=== PATIENT | female | born 1940 | race Caucasian/White ===

== ENCOUNTER 2017-01-23 10:06 | Inpatient (IN) | payer MEDICARE, OTHER ==
[~2017-01-23] VITALS: Ht 157.5 cm; Wt 73.5 kg
[~2017-01-23 10:06] MED LIST: AMLO2.5T PO; ATORVASTATIN CA80 MG PO; FLUO20CA8 PO; METO50TA10 PO; PIOG30TA3 PO
--- NOTE | 2017-01-23 11:28 | ED.ADGEN ---
Past Medical History Past Medical History: High Cholesterol, Hypertension Past Surgical History: , Other Additional Past Surgical Histo: kidney, L wrist Alcohol Use: None Drug Use: None Adult General Chief Complaint Chief Complaint: MECHANICAL FALL HPI HPI Patient is a 76 year old female who presents with right lower extremity pain. Patient states she was climbing over a fence that was what yesterday when she slipped and fell onto the right leg. She denies hitting her head or having loss of consciousness, no neck or back pain. Patient's been unable to ambulate on the leg since. She had to crawl to her home and she was helped up by family members. She denies taking any blood thinners. She is not taking anything for pain, the pain is in her right hip, distal right upper leg, diffuse right lateral lower leg and her ankle. Review of Systems Review of Systems Constitutional: Denies fever or chills. [] Eyes: Denies change in visual acuity. [] HENT: Denies nasal congestion or sore throat. [] Respiratory: Denies cough or shortness of breath. [] Cardiovascular: Denies active chest pain GI: Denies abdominal pain, nausea, vomiting, bloody stools or diarrhea. [] : Denies dysuria. [] Musculoskeletal: Denies back pain Integument: Denies rash. [] Neurologic: Denies headache, focal weakness or sensory changes. [] Current Medications Current Medications Current Medications Medications (Trade) Dose Ordered Sig/Kerrie Start Time Stop Time Status Last Admin Dose Admin Acetaminophen/ Hydrocodone Bitart (Lortab 5/325) 1 tab 1X ONCE 01/23/17 11:30 01/23/17 11:31 DC 01/23/17 11:30 1 TAB Ondansetron HCl (Zofran Odt) 4 mg 1X ONCE 01/23/17 11:30 01/23/17 11:31 DC 01/23/17 11:30 4 MG Allergies Allergies Allergies Coded Allergies Type Severity Reaction Last Updated Verified No Known Drug Allergies 09/23/14 No Physical Exam Physical Exam Constitutional: Well developed, well nourished, no acute distress, non-toxic appearance. [] HENT: Normocephalic, atraumatic, bilateral external ears normal, oropharynx moist, no oral exudates, nose normal. [] Eyes: PERRLA, EOMI, conjunctiva normal, no discharge. [] Neck: Normal range of motion, no tenderness, supple, no stridor. [] Cardiovascular:Heart rate regular with regular rhythm, no murmur [] Lungs & Thorax: Bilateral breath sounds clear to auscultation, no wheeze or crackles Abdomen: soft, no tenderness, no masses, no pulsatile masses. [] Skin: Warm, dry, no erythema, no rash. [] Back: No midline stepoffs or tenderness, no CVA tenderness. [] Extremities: RLE with ttp along distal/lateral upper leg with knee effusion, inability to flex at knee more than 20 degrees, in extended position, diffuse swelling/bruising of the lower leg along lateral aspect, normal distal sensory, dp pulse 2+, wiggles toes, ankle ttp without deformity, + ttp R ramus of pelvis , other extremities nontender and nondeformed. Neurologic: Alert and oriented X 3, normal motor function, normal sensory function, no focal deficits noted. [] Psychologic: Affect normal, judgement normal, mood normal. [] EKG EKG [] Radiology/Procedures Radiology/Procedures Pelvis, single view, 01/23/2017: History: Fall, pelvic pain No acute fracture or dislocation is identified. The hip joints are well-maintained with only mild marginal spurring. There is a small well-defined calcification in the soft tissues along superior aspect of the left greater trochanter. IMPRESSION: No acute pelvic abnormality is detected. Right femur, 2 views, 01/23/2017: No fracture is identified. The soft tissues are unremarkable. IMPRESSION: No acute right femoral abnormality is detected. Right knee with patella, 4 views, 01/23/2017: A large joint effusion is present. There are lucencies projected over the lateral aspect of the lateral tibial plateau raising the possibility of a nondisplaced fracture. No other fracture or dislocation is identified. IMPRESSION: 1. Large knee joint effusion. 2. Possible fracture of the lateral aspect of the proximal tibia. CT scanning may be useful for further evaluation, if clinically indicated. Right tibia and fibula, 2 views, 01/23/2017: No additional fracture is identified. Mild subcutaneous edema is noted. Right ankle, 3 views, 01/23/2017: No fracture or dislocation is identified. There is mild subcutaneous edema. IMPRESSION: No acute bony abnormality is detected. [] CT LE IMPRESSION: 1. Nondisplaced fracture of the proximal tibia laterally involving the articular surface of the lateral tibial plateau. 2. Moderate sized knee joint effusion. Course & Med Decision Making Course & Med Decision Making Pertinent Labs and Imaging studies reviewed. (See chart for details) pt reluctantly agreed to chris and sharon odt. XRays ordered. Pt explained some angina yesterday and pt was adamant she did not what to have this evaluated. I spoke with 's nurse practitioner, recommend knee immobilizer. I explained my concern for possible compartment syndrome developing. Patient preferred to go home but was unable to maneuver the crutches and which to do so. Therefore she did stay, we will continue to monitor her neurovascular status and have Dr. Khan see the patient. Accepted to Dr. Darling service DX: Tibial plateau fracture Chirag Disclaimer Dragelisa Disclaimer This electronic medical record was generated, in whole or in part, using a voice recognition dictation system. EDIS NANE MD Jan 23, 2017 11:28
[2017-01-23] MEDS ORDERED: HYDROcodone/APAP 5/325MG 1 TAB TABLET PO ONE (11:30)
[2017-01-23] MEDS ORDERED: ONDANSETRON ODT 4 MG TAB.RAPDIS. PO ONE (11:30)
--- NOTE | 2017-01-23 12:12 | RAD ---
Pelvis, single view, 01/23/2017: History: Fall, pelvic pain No acute fracture or dislocation is identified. The hip joints are well-maintained with only mild marginal spurring. There is a small well-defined calcification in the soft tissues along superior aspect of the left greater trochanter. IMPRESSION: No acute pelvic abnormality is detected. Right femur, 2 views, 01/23/2017: No fracture is identified. The soft tissues are unremarkable. IMPRESSION: No acute right femoral abnormality is detected. Right knee with patella, 4 views, 01/23/2017: A large joint effusion is present. There are lucencies projected over the lateral aspect of the lateral tibial plateau raising the possibility of a nondisplaced fracture. No other fracture or dislocation is identified. IMPRESSION: 1. Large knee joint effusion. 2. Possible fracture of the lateral aspect of the proximal tibia. CT scanning may be useful for further evaluation, if clinically indicated. Right tibia and fibula, 2 views, 01/23/2017: No additional fracture is identified. Mild subcutaneous edema is noted. Right ankle, 3 views, 01/23/2017: No fracture or dislocation is identified. There is mild subcutaneous edema. IMPRESSION: No acute bony abnormality is detected.
--- NOTE | 2017-01-23 14:12 | RAD ---
CT of the right knee without contrast, 01/23/2017: History: Fall, injury Noncontrast scans were obtained from the distal thigh down to the ankle joint as requested. There is a fracture of the proximal tibia laterally. The fracture is slightly comminuted. A fracture line involves the articular surface. There is slight cortical irregularity of the articular surface without significant depression or displacement. The distal femur, proximal fibula and patella are unremarkable. There is a moderate size knee joint effusion. There is mild subcutaneous edema anteriorly and laterally at the knee level. IMPRESSION: 1. Nondisplaced fracture of the proximal tibia laterally involving the articular surface of the lateral tibial plateau. 2. Moderate sized knee joint effusion. PQRS Compliance Statement: One or more of the following individualized dose reduction techniques were utilized for this examination: 1. Automated exposure control 2. Adjustment of the mA and/or kV according to patient size 3. Use of iterative reconstruction technique
[2017-01-23] MEDS ORDERED: HYDR-971 PO (14:46)
[2017-01-23] MEDS ORDERED: HYDROcodone/APAP 5/325MG 1 TAB TABLET PO PRN (15:30)
--- NOTE | 2017-01-23 15:59 | ACF ---
Admission Forms Criteria MUSCULOSKELETAL DISEASE GRG Clinical Indications for Admission to Inpatient Care (Place 'X' for any and all applicable criteria): Hospital admission is needed for appropriate care of the patient because of 1 or more of the following: [X]I. Fracture, dislocation, or other musculoskeletal injury requiring inpatient care(medical) as indicated by 1 or more of the following(4)(5)(6)(7) [ ]a) Vertebral fracture requiring observation for instability or neurologic compromise (8) [ ]b) Compartment syndrome (proven or cannot be ruled out during observation level of care) (9) [ ]c) Limb-threatening injury [ ]d) Major injury requiring inpatient stabilization such as traction initiation or external fixation before internal fixation or closure of complex or open fracture [X]e) Major injury requiring inpatient treatment after emergency or observation level care (as appropriate) [ ]f) Severe pain requiring acute inpatient management [ ]g) Injury with suspicion of abuse or neglect (eg., child, dependent elderly) [ ]II. Newly diagnosed or suspected bone, joint, or orthopedic device infection (e.g., osteomyelitis, septic arthritis) needing 1 or more of the following(1)(2)(3) [ ]a) IV antibiotics that cannot be initiated in other than inpatient setting (e.g., patient too unstable or home infusion not available) [ ]b) Device removal or replacement [ ]c) Bone or soft tissue debridement [ ]d) Joint drainage (drain placement or repetitive aspirations) [ ]III. Severe rheumatologic disease (e.g., systemic lupus erythematosus, rheumatoid arthritis) with complications or comorbidities (Also use Optimal Recovery Care Criteria or General Recovery Criteria as appropriate on the basis of predominant condition), including 1 or more of the following( 10)(11)(12)(13) [ ]a) Severe infection (e.g., CUSTOM APPLICATOR infection, sepsis) (14) [ ]b) Respiratory complications, including 1 or more of the following : [ ]i) Pleural effusion with respiratory compromise [ ]ii) Pulmonary hypertension with congestive failure [ ]iii) Respiratory failure [ ]iv) Pulmonary hemorrhage (15) [ ]c) Hematologic disease, including 1 or more of the following: [ ]i) Coagulopathy with bleeding [ ]ii) Thrombosis with hypercoagulable state [ ]iii) Thrombotic thrombocytopenic purpura [ ]d) Cerebritis with seizures, psychosis, or other severe abnormalities [ ]e) Vertebral destruction with monitoring needed for cervical myelopathy& possible respiratory compromise [ ]f) Exacerbation that requires inpatient treatment (e.g., intravenous immunosuppression) (16) [ ]g) Acute renal failure [ ]h) Cerebritis with seizures, psychosis, Altered mental status, or other neurologic abnormalities [ ]i) Pericardial effusion with tamponade [ ]j) Vertebral destruction, with monitoring needed for cervical myelopathy and possible respiratory compromise [ ]IV. Severe vasculitis with complications or comorbidities (Also use Optimal Recovery Care Criteria General Recovery Criteria as appropriate on the basis of predominant condition), including 1 or more of the following(11)(12)(17)(18)(19)(20) [ ]a) Exacerbation that requires inpatient treatment (e.g., intravenous immunosuppression) (19)(21) [ ]b) Pulmonary hemorrhage (15) [ ]c) CUSTOM APPLICATOR vasculitis with seizures, psychosis, Altered mental status that is severe or persistent, or other severe abnormalities (22) [ ]d) Cerebral infarction [ ]e) Gastrointestinal ischemia [ ]f) Gangrene or threatened amputation [ ]g) Renal failure (16) [ ]h) Other significant complications of vasculitis ( eg., tissue or organ ischemia, organ dysfunction ) [ ]V. Severe myopathy as indicated by 1 or more of the following (28)(29) [ ]a) New onset of airway compromise or inability to swallow [ ]b) Respiratory deterioration with observation needed for impending respiratory failure [ ]c) Exacerbation that requires inpatient treatment (e.g., intravenous immunosuppression) [ ]. Severe crystal gout (arthropathy) indicated by 1 or more of the following (23)(24) [ ]a) Severe pain requiring acute inpatient management [ ]b) Exacerbation that requires inpatient treatment (e.g., intravenous treatment) [ ]VII.Rhabdomyolysis and 1 or more of the following (25)(26)(27) [ ]a) Acute renal failure [ ]b) Need for intravenous hydration after emergency or observation level care (as appropriate) [ ]c) Inability to maintain oral hydration [ ]d) Change in mental status [ ]e) Electrolyte abnormality that remains after emergency or observation level care (as appropriate) [ ]VIII Post amputation complication, as indicated by ANY ONE of the following [ ]a) Infection [ ]b) Dehiscence [ ]c) Myodesis failure [ ]IX. Severe pain requiring acute inpatient management due to musculoskeletal condition [ ]X. Musculoskeletal Disease and ALL of the following: [ ]a) Symptom or finding for which emergency and observation care have failed or are not considered appropriate (Use General Criteria: Observation Care as appropriate) [ ]b) Presence of ANY ONE of the following [ ]i) A General Admission Criteria [ ]ii) A Pediatric General Admission Criteria The original [facility] content created by [email or web address] has been revised. The portions of the content which have been revised are identified through the use of italic text or in bold, and [email or web address] has neither reviewed nor approved the modified material. All other unmodified content is copyright [email or web address]. Please see references footnoted in the original [email or web address] edition 2016 Admission Criteria Met?: Yes KATH BAGLEY Jan 23, 2017 15:59
--- NOTE | 2017-01-23 16:35 | PDOC1 ---
History and Physical Current Problem List Problem List Problems Medical Problems: (1) Tibial plateau fracture, right Status: Acute Current Medications Current Medications Current Medications Medications (Trade) Dose Ordered Sig/Kerrie Start Time Stop Time Status Last Admin Dose Admin Acetaminophen/ Hydrocodone Bitart (Lortab 5/325) 1 tab PRN 1X PRN 01/23/17 15:30 Ondansetron HCl (Zofran Odt) 4 mg 1X ONCE 01/23/17 11:30 01/23/17 11:31 DC 01/23/17 11:30 4 MG Allergies Allergies Allergies Coded Allergies Type Severity Reaction Last Updated Verified No Known Drug Allergies 09/23/14 No ROS Review of System CONSTITUTIONAL: No fever or chills EYES: No recent changes SKIN: No rash or itching CARDIOVASCULAR: No chest pain, syncope, palpitations, or edema RESPIRATORY: No SOB or cough GASTROINTESTINAL: No nausea, vomiting or abdominal pain NEUROLOGICAL: No headaches or weakness ENDOCRINE: No cold or heat intolerance GENITOURINARY: No urgency or frequency of urination MUSCULOSKELETAL: joint pains LYMPHATICS: No enlarged lymph nodes PSYCHIATRIC: No anxiety or depression Physical Exam Physical Exam GEN.: No apparent distress. Alert and oriented. HEENT: Head is normocephalic, atraumatic NECK: Supple. no JVD LUNGS: Clear to auscultation. normal airflow HEART: RRR, S1, S2 present. Peripheral pulses intact ABDOMEN: Soft, nontender. Positive bowel sounds. EXTREMITIES: RLE cast present, pulses intact. sensations intact. NEUROLOGIC: Normal speech, normal tone PSYCHIATRIC: Normal affect, normal mood. SKIN: No ulcerations VTE Prophylaxis Ordered VTE Prophylaxis Devices: Yes VTE Pharmacological Prophylaxi: Yes OMAR MONTANO MD Jan 23, 2017 16:35
[2017-01-23] MEDS ORDERED: ACETAMINOPHEN 325 MG TABLET. PO PRN (16:45)
[2017-01-23] MEDS ORDERED: hydrALAZINE 20 MG/ML VIAL. IVP PRN (16:45)
[2017-01-23] MEDS ORDERED: ONDANSETRON PF 4 MG/2 ML VIAL. IV PRN (16:45)
[2017-01-23] MEDS ORDERED: ALBUTEROL SULFATE 2.5 MG/3 ML NEBU. NEB PRN (16:45)
[2017-01-23] MEDS: ONDANSETRON ODT 4 MG TAB.RAPDIS. PO PRN (18:20)
[2017-01-23] MEDS: HYDROcodone/APAP 7.5/325MG 1 TAB TABLET PO PRN (18:20)
[2017-01-23] MEDS: ENOXAPARIN 40 MG/0.4 ML SYRINGE. SQ SCH (18:21)
[2017-01-23 18:58] LABS: BASO % 0 % (0-3); EOS % 1 % (0-3); HEMATOCRIT 33.3 % (36.0-47.0); HEMOGLOBIN 10.9 g/dL (12.0-15.5); LYMPH # 2.1 x10^3/uL (1.0-4.8); LYMPH % 28 % (24-48); MEAN CORPUSCULAR HEMOGLOBIN 30 pg (25-35); MEAN CORPUSCULAR HGB CONC 33 g/dL (31-37); MEAN CORPUSCULAR VOLUME 91 fL (79-100); MONO % 9 % (0-9); NEUT % 62 % (31-73); PLATELET COUNT 176 x10^3/uL (140-400); RED BLOOD COUNT 3.67 x10^6/uL (3.50-5.40); RED CELL DISTRIBUTION WIDTH 14.5 % (11.5-14.5); WHITE BLOOD COUNT 7.4 x10^3/uL (4.0-11.0)
[2017-01-23 19:12] VITALS: BP 136/48
[2017-01-23 19:12] LABS: CALCIUM 8.9 mg/dL (8.5-10.1); CREATININE 1.3 mg/dL (0.6-1.0); POTASSIUM 3.8 mmol/L (3.5-5.1)
--- NOTE | 2017-01-23 22:29 | HP ---
ADMIT DATE: 01/23/2017 CHIEF COMPLAINT: Mechanical fall. HISTORY OF PRESENT ILLNESS: A 76-year-old female patient with a prior history of hypertension, diabetes, presented to the ER with complaints of right lower extremity extreme pain. Reportedly, the patient was trying to climb over the fence yesterday night and slipped and fell onto the right leg and this morning, she presented to the ER, noted to have a right tibial plateau fracture and the patient was admitted to the hospital for pain control and orthopedic evaluation and possible surgical plans. Currently, the patient's pain is 10/10, getting better with hydrocodone. Denies any fever or chills. Her right lower extremity is in a cast. PAST MEDICAL HISTORY: Hypertension, hyperlipidemia, diabetes mellitus and angina. PAST SURGICAL HISTORY: . PERSONAL HISTORY: No smoking, no alcohol, no drug abuse. FAMILY HISTORY: Unknown to the patient. REVIEW OF SYSTEMS: Please see my electronic H and P. PHYSICAL EXAMINATION: Please see my electronic H and P. HOME MEDICATIONS: Reviewed, reconciled. Please see MRAD. IMAGING STUDIES: Lower extremity CT showed a nondisplaced fracture of the proximal tibia laterally involving the articular surface of the lateral tibial ____. ____ Ankle x-ray: Large knee joint effusion, possible fracture of the lateral aspect of the proximal tibia. Pelvic x-ray: No pelvic abnormality seen. Femur x-ray: No acute right femoral abnormality seen. Right ankle 3 view: No acute abnormality seen. ASSESSMENT: 1. Right proximal nondisplaced tibial fracture, present on admission. 2. Diabetes mellitus. 3. Hypertension and angina. 4. Chronic obstructive pulmonary disease. PLAN: 1. She has been admitted for pain control with IV morphine and hydrocodone. 2. Mild IV hydration to prevent any compartment syndrome. 3. Orthopedics has been consulted for possible surgical plans. 4. CBC, BMP ordered and we will add CPK too. 5. DVT prophylaxis with Lovenox. 6. Home medication metoprolol and other home medications discussed with RN, we will continue. 7. Supportive care, physical therapy and occupational therapy. OMAR MONTANO MD DR: ROBERTO/leti JOB#: [id number] / [id number] MTDD
[2017-01-23 23:15] VITALS: BP 104/44
--- NOTE | 2017-01-24 00:56 | PDOC2 ---
CONSULT Date of Consult Date of Consult DATE: 01/23/17 Reason for Consult Reason for Consult: right proximal tibia fracture Referring Physician Referring Physician: ER physician Identification/Chief Complaint Chief Complaint Right knee pain Source Source: Chart review, Patient History of Present Illness Reason for Visit: Stacey is a 76 year old female patient admitted with a right proximal tibia fracture. She says last night she climbed over the fence in [place] while trying to let her guineafowl on the other side, when she slipped and fell on her right leg. She laid in the pasture for about an hour before she crawled inside to her . She denies hitting her head, lightheadedness, or loss of consciousness. She is in a right knee immobilizer and is pretty comfortable at rest. There is pain with any attempted movement of the right knee. Past Medical History Cardiovascular: HTN, Hyperlipidemia Endocrine: Diabetes Past Surgical History Past Surgical History kidney, wrist Past Surgical History: Family History Family History: No Significant Social History No ALCOHOL: none Drugs: None Lives: with Family Current Problem List Problem List Problems Medical Problems: (1) Tibial plateau fracture, right Status: Acute Current Medications Current Medications Current Medications Acetaminophen/ Hydrocodone Bitart (Lortab 5/325) 1 tab 1X ONCE PO Last administered on 01/23/17 11:30; Start 01/23/17 at 11:30; Stop 01/23/17 at 11:31 ; Status DC Ondansetron HCl (Zofran Odt) 4 mg 1X ONCE PO Last administered on 01/23/17 11 :30; Start 01/23/17 at 11:30; Stop 01/23/17 at 11:31; Status DC Acetaminophen/ Hydrocodone Bitart (Lortab 5/325) 1 tab PRN 1X PRN PO pain Last administered on 01/24/17 00:13; Start 01/23/17 at 15:30 Acetaminophen (Tylenol) 325 mg PRN Q6HRS PRN PO MILD PAIN / TEMP; Start at 16:45 Acetaminophen/ Hydrocodone Bitart (Lortab 5/325) 1 tab PRN Q6HRS PRN PO MODERATE TO SEVERE PAIN; Start 01/23/17 at 16:45 Hydralazine HCl (Apresoline) 10 mg PRN Q4HRS PRN IVP ELEVATED BP, SEE COMMENTS ; Start 01/23/17 at 16:45 Ondansetron HCl (Zofran) 4 mg PRN Q8HRS PRN IV NAUSEA/VOMITING; Start 01/23/17 at 16:45 Albuterol Sulfate (Ventolin Neb Soln) 2.5 mg PRN Q4HRS PRN NEB SHORTNESS OF BREATH; Start 01/23/17 at 16:45 Enoxaparin Sodium (Lovenox 40mg Syringe) 40 mg Q24H SQ Last administered on 18:21; Start 01/23/17 at 18:00 Acetaminophen/ Hydrocodone Bitart (Lortab 7.5/325) 1 tab PRN Q4HRS PRN PO PAIN Last administered on 01/23/17 18:20; Start 01/23/17 at 17:30 Ondansetron HCl (Zofran Odt) 4 mg PRN Q6HRS PRN PO NAUSEA/VOMITING Last administered on 01/23/17 18:20; Start 01/23/17 at 17:30 Active Scripts Active [place] 5-325 Tablet (Acetaminophen/Hydrocodone Bitart) 1 Each Tablet 1 Each PO PRN Q6HRS PRN as needed for pain Reported Pioglitazone Hcl 30 Mg Tablet 30 Mg PO DAILY Metoprolol Succinate 50 Mg Tab.er.24h 50 Mg PO Fluoxetine Hcl 20 Mg Capsule 1 Cap PO DAILY Atorvastatin Calcium 80 Mg Tablet 1 Tab PO DAILY Amlodipine Besylate 2.5 Mg Tablet 1 Tab PO DAILY Allergies Allergies: Coded Allergies: No Known Drug Allergies (Unverified , 09/23/14) Physical Exam General: Alert, Oriented X3, Cooperative, No acute distress HEENT: Atraumatic, EOMI Lungs: Normal air movement Heart: Regular rate Abdomen: Soft Extremities: No clubbing, No cyanosis, No edema, Normal pulses Skin: No rashes, No breakdown, No significant lesion Neuro: Normal speech, Sensation intact Psych/Mental Status: Mental status NL, Mood NL MUSCULOSKELETAL: Other (Right knee immobilizer intact. There is no lesion, abrasion, erythema, or ecchymosis of the right lower extremity. There is a small effusion. Tenderness to palpation generally over the knee, but specifically of the lateral tibia. Compartments are soft. Calf soft and nontender, with a negative Taylor's sign. Good dorsiflexion and plantarflexion. Peripheral pulses intact and light touch sensation normal.) Vitals VITALS Vital Signs Date Time Temp Pulse Resp B/P Pulse Ox O2 Delivery O2 Flow Rate FiO2 01/24/17 00:13 20 92 Room Air 01/23/17 23:15 98.8 68 104/44 98.8 Labs Labs Laboratory Tests Test 01/23/17 17:10 White Blood Count 7.4x10^3/uL (4.0-11.0) Red Blood Count 3.67x10^6/uL (3.50-5.40) Hemoglobin 10.9g/dL (12.0-15.5) Hematocrit 33.3% (36.0-47.0) Mean Corpuscular Volume 91fL (79-100) Mean Corpuscular Hemoglobin 30pg (25-35) Mean Corpuscular Hemoglobin Concent 33g/dL (31-37) Red Cell Distribution Width 14.5% (11.5-14.5) Platelet Count 176x10^3/uL (140-400) Neutrophils (%) (Auto) 62% (31-73) Lymphocytes (%) (Auto) 28% (24-48) Monocytes (%) (Auto) 9% (0-9) Eosinophils (%) (Auto) 1% (0-3) Basophils (%) (Auto) 0% (0-3) Neutrophils # (Auto) 4.6x10^3uL (1.8-7.7) Lymphocytes # (Auto) 2.1x10^3/uL (1.0-4.8) Monocytes # (Auto) 0.7x10^3/uL (0.0-1.1) Eosinophils # (Auto) 0.1x10^3/uL (0.0-0.7) Basophils # (Auto) 0.0x10^3/uL (0.0-0.2) Sodium Level 138mmol/L (136-145) Potassium Level 3.8mmol/L (3.5-5.1) Chloride Level 103mmol/L (98-107) Carbon Dioxide Level 27mmol/L (21-32) Anion Gap 8 (6-14) Blood Urea Nitrogen 20mg/dL (7-20) Creatinine 1.3mg/dL (0.6-1.0) Estimated GFR (Cockcroft-Gault) 40.0 Glucose Level 157mg/dL (70-99) Calcium Level 8.9mg/dL (8.5-10.1) Laboratory Tests Test 01/23/17 17:10 White Blood Count 7.4x10^3/uL (4.0-11.0) Red Blood Count 3.67x10^6/uL (3.50-5.40) Hemoglobin 10.9g/dL (12.0-15.5) Hematocrit 33.3% (36.0-47.0) Mean Corpuscular Volume 91fL (79-100) Mean Corpuscular Hemoglobin 30pg (25-35) Mean Corpuscular Hemoglobin Concent 33g/dL (31-37) Red Cell Distribution Width 14.5% (11.5-14.5) Platelet Count 176x10^3/uL (140-400) Neutrophils (%) (Auto) 62% (31-73) Lymphocytes (%) (Auto) 28% (24-48) Monocytes (%) (Auto) 9% (0-9) Eosinophils (%) (Auto) 1% (0-3) Basophils (%) (Auto) 0% (0-3) Neutrophils # (Auto) 4.6x10^3uL (1.8-7.7) Lymphocytes # (Auto) 2.1x10^3/uL (1.0-4.8) Monocytes # (Auto) 0.7x10^3/uL (0.0-1.1) Eosinophils # (Auto) 0.1x10^3/uL (0.0-0.7) Basophils # (Auto) 0.0x10^3/uL (0.0-0.2) Sodium Level 138mmol/L (136-145) Potassium Level 3.8mmol/L (3.5-5.1) Chloride Level 103mmol/L (98-107) Carbon Dioxide Level 27mmol/L (21-32) Anion Gap 8 (6-14) Blood Urea Nitrogen 20mg/dL (7-20) Creatinine 1.3mg/dL (0.6-1.0) Estimated GFR (Cockcroft-Gault) 40.0 Glucose Level 157mg/dL (70-99) Calcium Level 8.9mg/dL (8.5-10.1) Images Images X-rays of the right ankle, leg, knee, and pelvis were reviewed. CT of the right lower extremity shows a nondisplaced lateral proximal tibia fracture with involvement of the articular surface of the tibial plateau. Assessment/Plan Assessment/Plan Right proximal tibia fracture. Findings were reviewed with the patient and her daughter. I recommended nonoperative treatment with a knee immobilizer. Remain nonweightbearing on the right lower extremity. PT/OT to work with patient on using crutches. Office followup in two weeks. SARAH DE LOS SANTOS Jan 24, 2017 00:56
[2017-01-24 06:16] LABS: HEMATOCRIT 32.7 % (36.0-47.0); HEMOGLOBIN 10.8 g/dL (12.0-15.5); MEAN CORPUSCULAR HEMOGLOBIN 31 pg (25-35); MEAN CORPUSCULAR HGB CONC 33 g/dL (31-37); MEAN CORPUSCULAR VOLUME 92 fL (79-100); PLATELET COUNT 169 x10^3/uL (140-400); RED BLOOD COUNT 3.55 x10^6/uL (3.50-5.40); RED CELL DISTRIBUTION WIDTH 15.1 % (11.5-14.5); WHITE BLOOD COUNT 7.2 x10^3/uL (4.0-11.0)
[2017-01-24 06:17] LABS: BASO % 0 % (0-3); EOS % 1 % (0-3); LYMPH % 28 % (24-48); MONO % 10 % (0-9); NEUT % 62 % (31-73)
[2017-01-24 06:56] LABS: CALCIUM 8.8 mg/dL (8.5-10.1); CREATININE 1.3 mg/dL (0.6-1.0); POTASSIUM 3.8 mmol/L (3.5-5.1)
[2017-01-24 07:00] VITALS: BP 132/53
[2017-01-24] MEDS: ONDANSETRON ODT 4 MG TAB.RAPDIS. PO PRN (08:24)
[2017-01-24] MEDS: HYDROcodone/APAP 5/325MG 1 TAB TABLET PO PRN ×3 (08:25→22:35)
[2017-01-24] MEDS ORDERED: AMLO5TAB2 (08:27)
[2017-01-24] MEDS ORDERED: ALPR0.254 (08:29)
[2017-01-24 11:00] VITALS: BP 119/43
--- NOTE | 2017-01-24 12:50 | EKG ---
[facility] [address] [place] [address] Test Date: 2017-01-23 Test Time: 11:00:13 Pat Name: DAYANA CYR Department: Room: 432 1 Gender: F [employer] Leader: : 1940 Requested By: OMAR MONTANO Order Number: [id number] Reading MD: Jose Alejandro Leija Measurements Intervals [place] Rate: 62 P: 54 AR: 142 QRS: 9 QRSD: 82 T: 15 QT: 396 QTc: 404 Interpretive Statements SINUS RHYTHM Electronically Signed On 01-26-2017 9:38:27 CDT by Jose Alejandro Leija
--- NOTE | 2017-01-24 13:44 | PDOC ---
Provider Note Provider Note The patient was seen by me today. She was very pleasant. She told a story of climbing over the fence to get one of her 's 9 guinea hens when she slipped and fell because the fence was wet. She has trace knee effusion, but is comfortable in the knee immobilizer. No evidence of compartment syndrome. Neurovascularly intact at the foot. I reviewed Ashley Lacy PA-C note, and concur. I reviewed the CT scan, the x-rays, and the reports. The minimally displaced, nondepressed and nonsurgical lateral tibial plateau fracture is seen on series [address] scan. No surgery planned. I recommended office follow-up and continued splinting with nonweightbearing for 3 weeks followed by hinged knee brace and progressive weightbearing at that point. After I saw the patient, I was notified by the nurse that the patient's family has requested to be seen by a different physician. SUZANNE ALEXANDER MD Jan 24, 2017 13:44
[2017-01-24 15:00] VITALS: BP 115/42
[2017-01-24] MEDS ORDERED: ALPRAZolam 0.25 MG TABLET PO PRN (16:00)
[2017-01-24] MEDS: amLODIPine BESYLATE 5 MG TABLET PO SCH (16:00)
[2017-01-24] MEDS: METOPROLOL SUCC 24HR ER 50 MG TAB.ER.24H. PO SCH (16:00)
[2017-01-24] MEDS ORDERED: HYDROcodone/APAP 5/325MG 1 TAB TABLET PO PRN (16:00)
[2017-01-24] MEDS: PIOGLITAZONE 15 MG TABLET. PO SCH (16:31)
[2017-01-24] MEDS: FLUoxetine HCL 20 MG CAPSULE PO SCH (16:32)
--- NOTE | 2017-01-24 16:34 | PDOC ---
PROGRESS NOTES Chief Complaint Chief Complaint cc: Right lower extremity pain -DM -angina -hypertension -hyperlipidemia -COPD -kidney cancer -left nephrectomy -depression -anxiety -smoking - section History of Present Illness History of Present Illness Ms. Foster was sitting upright and conversing with us without difficulty. We discussed the pain she is going through with her tibial fracture. She had a knee brace on when we visited with her. She had just finished working on moving around in her room, and she described having difficulty with the therapy. In particular, she was concerned about the stability of crutches and was much more confident in her ability to complete rehab with a walker instead. She is still having symptoms of pain, which are typically controlled by pain medication. However, she only takes that once per day, and by the time the afternoon approaches she has noticed she becomes substantially worse. Vitals Vitals Vital Signs Date Time Temp Pulse Resp B/P Pulse Ox O2 Delivery O2 Flow Rate FiO2 01/24/17 11:00 101.5 56 18 119/43 90 Room Air 101.5 Physical Exam General: Alert, Cooperative Heart: Regular rate, Normal S1, Normal S2 Lungs: Clear, Other (She did not have any chest retractions with accessory muscle use or other signs of acute distress.) Abdomen: Soft, Other (Mild distension present) Extremities: No clubbing, No cyanosis Skin: No rashes, No breakdown Labs LABS Laboratory Tests Test 01/23/17 17:10 01/24/17 05:00 White Blood Count 7.4x10^3/uL (4.0-11.0) 7.2x10^3/uL (4.0-11.0) Red Blood Count 3.67x10^6/uL (3.50-5.40) 3.55x10^6/uL (3.50-5.40) Hemoglobin 10.9g/dL (12.0-15.5) 10.8g/dL (12.0-15.5) Hematocrit 33.3% (36.0-47.0) 32.7% (36.0-47.0) Mean Corpuscular Volume 91fL (79-100) 92fL (79-100) Mean Corpuscular Hemoglobin 30pg (25-35) 31pg (25-35) Mean Corpuscular Hemoglobin Concent 33g/dL (31-37) 33g/dL (31-37) Red Cell Distribution Width 14.5% (11.5-14.5) 15.1% (11.5-14.5) Platelet Count 176x10^3/uL (140-400) 169x10^3/uL (140-400) Neutrophils (%) (Auto) 62% (31-73) 62% (31-73) Lymphocytes (%) (Auto) 28% (24-48) 28% (24-48) Monocytes (%) (Auto) 9% (0-9) 10% (0-9) Eosinophils (%) (Auto) 1% (0-3) 1% (0-3) Basophils (%) (Auto) 0% (0-3) 0% (0-3) Neutrophils # (Auto) 4.6x10^3uL (1.8-7.7) 4.4x10^3uL (1.8-7.7) Lymphocytes # (Auto) 2.1x10^3/uL (1.0-4.8) 2.0x10^3/uL (1.0-4.8) Monocytes # (Auto) 0.7x10^3/uL (0.0-1.1) 0.7x10^3/uL (0.0-1.1) Eosinophils # (Auto) 0.1x10^3/uL (0.0-0.7) 0.1x10^3/uL (0.0-0.7) Basophils # (Auto) 0.0x10^3/uL (0.0-0.2) 0.0x10^3/uL (0.0-0.2) Sodium Level 138mmol/L (136-145) 138mmol/L (136-145) Potassium Level 3.8mmol/L (3.5-5.1) 3.8mmol/L (3.5-5.1) Chloride Level 103mmol/L (98-107) 102mmol/L (98-107) Carbon Dioxide Level 27mmol/L (21-32) 25mmol/L (21-32) Anion Gap 8 (6-14) 11 (6-14) Blood Urea Nitrogen 20mg/dL (7-20) 19mg/dL (7-20) Creatinine 1.3mg/dL (0.6-1.0) 1.3mg/dL (0.6-1.0) Estimated GFR (Cockcroft-Gault) 40.0 40.0 Glucose Level 157mg/dL (70-99) 122mg/dL (70-99) Calcium Level 8.9mg/dL (8.5-10.1) 8.8mg/dL (8.5-10.1) Review of Systems Review of Systems Ms. Foster has not had any nausea or vomiting. She has not experienced lightheadedness or dizziness. Assessment and Plan Assessmemt and Plan Problems Medical Problems: (1) Tibial plateau fracture, right Status: Acute Assessment: Ms. Foster is a 76 year old woman who presented with right lower extremity pain. -DM -angina -hypertension -hyperlipidemia -COPD -kidney cancer -left nephrectomy -depression -anxiety -smoking - section Plan: 1. Continue rehab - PT/OT 2. SNU evaluation for Thursday 3. Consulting Dr. Johnson 4. Continue home medications 5. Continue DVT prophylaxis enoxaparin 6. Continue nausea and pain management with ondansetron and Lortab 7. Appreciate subspecialist consultation Problems: Comment Review of Relevant I have reviewed the following items yazmin (where applicable) has been applied. Labs Laboratory Tests Test 01/23/17 17:10 01/24/17 05:00 White Blood Count 7.4x10^3/uL (4.0-11.0) 7.2x10^3/uL (4.0-11.0) Red Blood Count 3.67x10^6/uL (3.50-5.40) 3.55x10^6/uL (3.50-5.40) Hemoglobin 10.9g/dL (12.0-15.5) 10.8g/dL (12.0-15.5) Hematocrit 33.3% (36.0-47.0) 32.7% (36.0-47.0) Mean Corpuscular Volume 91fL (79-100) 92fL (79-100) Mean Corpuscular Hemoglobin 30pg (25-35) 31pg (25-35) Mean Corpuscular Hemoglobin Concent 33g/dL (31-37) 33g/dL (31-37) Red Cell Distribution Width 14.5% (11.5-14.5) 15.1% (11.5-14.5) Platelet Count 176x10^3/uL (140-400) 169x10^3/uL (140-400) Neutrophils (%) (Auto) 62% (31-73) 62% (31-73) Lymphocytes (%) (Auto) 28% (24-48) 28% (24-48) Monocytes (%) (Auto) 9% (0-9) 10% (0-9) Eosinophils (%) (Auto) 1% (0-3) 1% (0-3) Basophils (%) (Auto) 0% (0-3) 0% (0-3) Neutrophils # (Auto) 4.6x10^3uL (1.8-7.7) 4.4x10^3uL (1.8-7.7) Lymphocytes # (Auto) 2.1x10^3/uL (1.0-4.8) 2.0x10^3/uL (1.0-4.8) Monocytes # (Auto) 0.7x10^3/uL (0.0-1.1) 0.7x10^3/uL (0.0-1.1) Eosinophils # (Auto) 0.1x10^3/uL (0.0-0.7) 0.1x10^3/uL (0.0-0.7) Basophils # (Auto) 0.0x10^3/uL (0.0-0.2) 0.0x10^3/uL (0.0-0.2) Sodium Level 138mmol/L (136-145) 138mmol/L (136-145) Potassium Level 3.8mmol/L (3.5-5.1) 3.8mmol/L (3.5-5.1) Chloride Level 103mmol/L (98-107) 102mmol/L (98-107) Carbon Dioxide Level 27mmol/L (21-32) 25mmol/L (21-32) Anion Gap 8 (6-14) 11 (6-14) Blood Urea Nitrogen 20mg/dL (7-20) 19mg/dL (7-20) Creatinine 1.3mg/dL (0.6-1.0) 1.3mg/dL (0.6-1.0) Estimated GFR (Cockcroft-Gault) 40.0 40.0 Glucose Level 157mg/dL (70-99) 122mg/dL (70-99) Calcium Level 8.9mg/dL (8.5-10.1) 8.8mg/dL (8.5-10.1) Laboratory Tests Test 01/23/17 17:10 01/24/17 05:00 White Blood Count 7.4x10^3/uL (4.0-11.0) 7.2x10^3/uL (4.0-11.0) Red Blood Count 3.67x10^6/uL (3.50-5.40) 3.55x10^6/uL (3.50-5.40) Hemoglobin 10.9g/dL (12.0-15.5) 10.8g/dL (12.0-15.5) Hematocrit 33.3% (36.0-47.0) 32.7% (36.0-47.0) Mean Corpuscular Volume 91fL (79-100) 92fL (79-100) Mean Corpuscular Hemoglobin 30pg (25-35) 31pg (25-35) Mean Corpuscular Hemoglobin Concent 33g/dL (31-37) 33g/dL (31-37) Red Cell Distribution Width 14.5% (11.5-14.5) 15.1% (11.5-14.5) Platelet Count 176x10^3/uL (140-400) 169x10^3/uL (140-400) Neutrophils (%) (Auto) 62% (31-73) 62% (31-73) Lymphocytes (%) (Auto) 28% (24-48) 28% (24-48) Monocytes (%) (Auto) 9% (0-9) 10% (0-9) Eosinophils (%) (Auto) 1% (0-3) 1% (0-3) Basophils (%) (Auto) 0% (0-3) 0% (0-3) Neutrophils # (Auto) 4.6x10^3uL (1.8-7.7) 4.4x10^3uL (1.8-7.7) Lymphocytes # (Auto) 2.1x10^3/uL (1.0-4.8) 2.0x10^3/uL (1.0-4.8) Monocytes # (Auto) 0.7x10^3/uL (0.0-1.1) 0.7x10^3/uL (0.0-1.1) Eosinophils # (Auto) 0.1x10^3/uL (0.0-0.7) 0.1x10^3/uL (0.0-0.7) Basophils # (Auto) 0.0x10^3/uL (0.0-0.2) 0.0x10^3/uL (0.0-0.2) Sodium Level 138mmol/L (136-145) 138mmol/L (136-145) Potassium Level 3.8mmol/L (3.5-5.1) 3.8mmol/L (3.5-5.1) Chloride Level 103mmol/L (98-107) 102mmol/L (98-107) Carbon Dioxide Level 27mmol/L (21-32) 25mmol/L (21-32) Anion Gap 8 (6-14) 11 (6-14) Blood Urea Nitrogen 20mg/dL (7-20) 19mg/dL (7-20) Creatinine 1.3mg/dL (0.6-1.0) 1.3mg/dL (0.6-1.0) Estimated GFR (Cockcroft-Gault) 40.0 40.0 Glucose Level 157mg/dL (70-99) 122mg/dL (70-99) Calcium Level 8.9mg/dL (8.5-10.1) 8.8mg/dL (8.5-10.1) Medications Current Medications Acetaminophen/ Hydrocodone Bitart (Lortab 5/325) 1 tab 1X ONCE PO Last administered on 01/23/17t 11:30; Start 01/23/17 at 11:30; Stop 01/23/17 at 11:31 ; Status DC Ondansetron HCl (Zofran Odt) 4 mg 1X ONCE PO Last administered on 01/23/17 11 :30; Start 01/23/17 at 11:30; Stop 01/23/17 at 11:31; Status DC Acetaminophen/ Hydrocodone Bitart (Lortab 5/325) 1 tab PRN 1X PRN PO pain Last administered on 01/24/17 00:13; Start 01/23/17 at 15:30; Stop 01/24/17 at 12:51 ; Status DC Acetaminophen (Tylenol) 325 mg PRN Q6HRS PRN PO MILD PAIN / TEMP; Start at 16:45 Acetaminophen/ Hydrocodone Bitart (Lortab 5/325) 1 tab PRN Q6HRS PRN PO MODERATE PAIN Last administered on 01/24/17 08:25; Start 01/23/17 at 16:45 Hydralazine HCl (Apresoline) 10 mg PRN Q4HRS PRN IVP ELEVATED BP, SEE COMMENTS ; Start 01/23/17 at 16:45 Ondansetron HCl (Zofran) 4 mg PRN Q8HRS PRN IV NAUSEA/VOMITING; Start 01/23/17 at 16:45 Albuterol Sulfate (Ventolin Neb Soln) 2.5 mg PRN Q4HRS PRN NEB SHORTNESS OF BREATH; Start 01/23/17 at 16:45 Enoxaparin Sodium (Lovenox 40mg Syringe) 40 mg Q24H SQ Last administered on 18:21; Start 01/23/17 at 18:00 Acetaminophen/ Hydrocodone Bitart (Lortab 7.5/325) 1 tab PRN Q4HRS PRN PO SEVERE PAIN Last administered on 01/23/17 18:20; Start 01/23/17 at 17:30 Ondansetron HCl (Zofran Odt) 4 mg PRN Q6HRS PRN PO NAUSEA/VOMITING Last administered on 01/24/17 08:24; Start 01/23/17 at 17:30 Aspirin (Ecotrin) 325 mg DAILY PO ; Start 01/25/17 at 09:00; Stop 02/22/17 at 08 :59 Alprazolam (Xanax) 0.25 mg PRN BID PRN PO ANXIETY / AGITATION; Start 01/24/17 at 16:00 Amlodipine Besylate (Norvasc) 5 mg DAILY08 PO ; Start 01/24/17 at 16:00 Fluoxetine HCl (Prozac) 20 mg DAILY PO ; Start 01/24/17 at 16:00 Acetaminophen/ Hydrocodone Bitart (Lortab 5/325) 1 tab PRN Q6HRS PRN PO PAIN; Start 01/24/17 at 16:00 Metoprolol Succinate (Toprol Xl) 50 mg DAILY08 PO ; Start 01/24/17 at 16:00 Atorvastatin Calcium (Lipitor) 80 mg QHS PO ; Start 01/24/17 at 21:00 Pioglitazone HCl (Actos) 30 mg DAILY PO ; Start 01/24/17 at 16:00 Active Scripts Active [place] 5-325 Tablet (Acetaminophen/Hydrocodone Bitart) 1 Each Tablet 1 Each PO PRN Q6HRS PRN as needed for pain Reported Alprazolam 0.25 Mg Tablet 0.25 Amlodipine Besylate 5 Mg Tablet 5 Pioglitazone Hcl 30 Mg Tablet 30 Mg PO DAILY Metoprolol Succinate 50 Mg Tab.er.24h 50 Mg PO Fluoxetine Hcl 20 Mg Capsule 1 Cap PO DAILY Atorvastatin Calcium 80 Mg Tablet 1 Tab PO DAILY Vitals/I & O Vital Sign - Last 24 Hours 01/23/17 01/23/17 01/23/17 01/23/17 19:12 19:20 20:00 23:15 Temp 98.8 98.8 98.8 98.8 Pulse 61 68 Resp 18 20 18 B/P 136/48 104/44 Pulse Ox 92 92 91 O2 Delivery Room Air Room Air Room Air Room Air 01/24/17 01/24/17 01/24/17 01/24/17 00:13 01:13 07:00 08:00 Temp 97.9 97.9 Pulse 69 Resp 20 20 18 B/P 132/53 Pulse Ox 92 93 O2 Delivery Room Air Room Air Room Air Room Air 01/24/17 11:00 Temp 101.5 101.5 Pulse 56 Resp 18 B/P 119/43 Pulse Ox 90 O2 Delivery Room Air Intake and Output 01/23/17 01/23/17 01/24/17 15:00 23:00 07:00 Intake Total 180 ml 300 ml Balance 180 ml 300 ml TARA PARADAL K III DO Jan 24, 2017 16:33
[2017-01-24] MEDS: ENOXAPARIN 40 MG/0.4 ML SYRINGE. SQ SCH (18:30)
[2017-01-24 19:50] VITALS: BP 108/51
[2017-01-24] MEDS: ATORVASTATIN CALCIUM 40 MG TABLET. PO SCH (20:54)
[2017-01-24 23:28] VITALS: BP 131/45
[2017-01-25] MEDS: HYDROcodone/APAP 5/325MG 1 TAB TABLET PO PRN ×2 (04:57→10:48)
[2017-01-25 05:28] LABS: BASO % 1 % (0-3); EOS % 5 % (0-3); HEMATOCRIT 30.4 % (36.0-47.0); HEMOGLOBIN 10.5 g/dL (12.0-15.5); LYMPH # 2.4 x10^3/uL (1.0-4.8); LYMPH % 39 % (24-48); MEAN CORPUSCULAR HEMOGLOBIN 31 pg (25-35); MEAN CORPUSCULAR HGB CONC 35 g/dL (31-37); MEAN CORPUSCULAR VOLUME 89 fL (79-100); MONO % 12 % (0-9); NEUT % 43 % (31-73); PLATELET COUNT 169 x10^3/uL (140-400); RED BLOOD COUNT 3.41 x10^6/uL (3.50-5.40); RED CELL DISTRIBUTION WIDTH 14.6 % (11.5-14.5); WHITE BLOOD COUNT 6.2 x10^3/uL (4.0-11.0)
[2017-01-25 05:45] LABS: CALCIUM 8.1 mg/dL (8.5-10.1); CREATININE 1.4 mg/dL (0.6-1.0); GFR 36.8; POTASSIUM 4.1 mmol/L (3.5-5.1)
[2017-01-25 07:00] VITALS: BP 125/53
[2017-01-25] MEDS: PIOGLITAZONE 15 MG TABLET. PO SCH (08:37)
[2017-01-25] MEDS: ASPIRIN ENTERIC COATED 325 MG TABLET.DR. PO SCH ×2 (08:37→08:42)
[2017-01-25] MEDS: amLODIPine BESYLATE 5 MG TABLET PO SCH (08:38)
[2017-01-25] MEDS: FLUoxetine HCL 20 MG CAPSULE PO SCH (08:38)
[2017-01-25] MEDS: METOPROLOL SUCC 24HR ER 50 MG TAB.ER.24H. PO SCH (08:38)
[2017-01-25 10:58] VITALS: BP 102/40
[2017-01-25] MEDS: ONDANSETRON ODT 4 MG TAB.RAPDIS. PO PRN (11:41)
[2017-01-25 15:13] VITALS: BP 119/41
--- NOTE | 2017-01-25 16:41 | PDOC ---
PROGRESS NOTES Chief Complaint Chief Complaint cc: Right lower extremity pain -DM -angina -hypertension -hyperlipidemia -COPD -kidney cancer -left nephrectomy -depression -anxiety -smoking - section History of Present Illness History of Present Illness Patient seen and evaluated this AM. Patient sitting upright, pleasantly conversant. Knee brace in place with pain well managed with medications. Patient states she is working well with therapy and is eager to start rehabilitation. family at bedside; sought and answered questions. d/w nurse about plan of care. Vitals Vitals Vital Signs Date Time Temp Pulse Resp B/P Pulse Ox O2 Delivery O2 Flow Rate FiO2 01/25/17 15:13 97.9 63 16 119/41 92 Room Air 97.9 Physical Exam General: Alert, Cooperative, No acute distress Heart: Regular rate, Normal S1, Normal S2 Lungs: Clear, Other (negative chest retractions and/or other accessory muscle use. ) Abdomen: Normal bowel sounds, Soft, No tenderness, Other Extremities: No clubbing, No cyanosis, No edema, Other (knee brace to the RLE; LEs neurovacularly intact bilaterally. Distal pulses 2/4 bilaterally. ) Skin: No rashes, No breakdown Labs LABS Laboratory Tests Test 01/25/17 05:10 White Blood Count 6.2x10^3/uL (4.0-11.0) Red Blood Count 3.41x10^6/uL (3.50-5.40) Hemoglobin 10.5g/dL (12.0-15.5) Hematocrit 30.4% (36.0-47.0) Mean Corpuscular Volume 89fL (79-100) Mean Corpuscular Hemoglobin 31pg (25-35) Mean Corpuscular Hemoglobin Concent 35g/dL (31-37) Red Cell Distribution Width 14.6% (11.5-14.5) Platelet Count 169x10^3/uL (140-400) Neutrophils (%) (Auto) 43% (31-73) Lymphocytes (%) (Auto) 39% (24-48) Monocytes (%) (Auto) 12% (0-9) Eosinophils (%) (Auto) 5% (0-3) Basophils (%) (Auto) 1% (0-3) Neutrophils # (Auto) 2.7x10^3uL (1.8-7.7) Lymphocytes # (Auto) 2.4x10^3/uL (1.0-4.8) Monocytes # (Auto) 0.8x10^3/uL (0.0-1.1) Eosinophils # (Auto) 0.3x10^3/uL (0.0-0.7) Basophils # (Auto) 0.0x10^3/uL (0.0-0.2) Sodium Level 140mmol/L (136-145) Potassium Level 4.1mmol/L (3.5-5.1) Chloride Level 106mmol/L (98-107) Carbon Dioxide Level 28mmol/L (21-32) Anion Gap 6 (6-14) Blood Urea Nitrogen 18mg/dL (7-20) Creatinine 1.4mg/dL (0.6-1.0) Estimated GFR (Cockcroft-Gault) 36.8 Glucose Level 121mg/dL (70-99) Calcium Level 8.1mg/dL (8.5-10.1) Review of Systems Review of Systems (+) Right knee pain, increased with ambulation Denies chest pain, palpitations, sob, abdominal pain, n/v/d, numbness/tingling, or fever/chills. Assessment and Plan Assessmemt and Plan Problems Medical Problems: (1) Tibial plateau fracture, right Status: Acute Assessment: 1.) R tibial plateau fracture - currently in knee brace 2.) diabetes mellitus 3.) HTN 4.) dyslipidemia 5.) COPD 6.) prior kidney cancer s/p left nephrectomy 7.) current tobacco use. Plan: 1. PT/OT 2. probable discharge to [facility] tomorrow when okay with subspecialty 3. appreciate subspecialty input 4. Continue home medications as appropriate 5. Continue pain regimen and antiemetics 6. Monitor AM labs 7. tobacco cessation counseling. nicotine patch prn if needed. 8. DVT ppx: lovenox Problems: Comment Review of Relevant I have reviewed the following items yazmin (where applicable) has been applied. Labs Laboratory Tests Test 01/23/17 17:10 01/24/17 05:00 01/25/17 05:10 White Blood Count 7.4x10^3/uL (4.0-11.0) 7.2x10^3/uL (4.0-11.0) 6.2x10^3/uL (4.0-11.0) Red Blood Count 3.67x10^6/uL (3.50-5.40) 3.55x10^6/uL (3.50-5.40) 3.41x10^6/uL (3.50-5.40) Hemoglobin 10.9g/dL (12.0-15.5) 10.8g/dL (12.0-15.5) 10.5g/dL (12.0-15.5) Hematocrit 33.3% (36.0-47.0) 32.7% (36.0-47.0) 30.4% (36.0-47.0) Mean Corpuscular Volume 91fL (79-100) 92fL (79-100) 89fL (79-100) Mean Corpuscular Hemoglobin 30pg (25-35) 31pg (25-35) 31pg (25-35) Mean Corpuscular Hemoglobin Concent 33g/dL (31-37) 33g/dL (31-37) 35g/dL (31-37) Red Cell Distribution Width 14.5% (11.5-14.5) 15.1% (11.5-14.5) 14.6% (11.5-14.5) Platelet Count 176x10^3/uL (140-400) 169x10^3/uL (140-400) 169x10^3/uL (140-400) Neutrophils (%) (Auto) 62% (31-73) 62% (31-73) 43% (31-73) Lymphocytes (%) (Auto) 28% (24-48) 28% (24-48) 39% (24-48) Monocytes (%) (Auto) 9% (0-9) 10% (0-9) 12% (0-9) Eosinophils (%) (Auto) 1% (0-3) 1% (0-3) 5% (0-3) Basophils (%) (Auto) 0% (0-3) 0% (0-3) 1% (0-3) Neutrophils # (Auto) 4.6x10^3uL (1.8-7.7) 4.4x10^3uL (1.8-7.7) 2.7x10^3uL (1.8-7.7) Lymphocytes # (Auto) 2.1x10^3/uL (1.0-4.8) 2.0x10^3/uL (1.0-4.8) 2.4x10^3/uL (1.0-4.8) Monocytes # (Auto) 0.7x10^3/uL (0.0-1.1) 0.7x10^3/uL (0.0-1.1) 0.8x10^3/uL (0.0-1.1) Eosinophils # (Auto) 0.1x10^3/uL (0.0-0.7) 0.1x10^3/uL (0.0-0.7) 0.3x10^3/uL (0.0-0.7) Basophils # (Auto) 0.0x10^3/uL (0.0-0.2) 0.0x10^3/uL (0.0-0.2) 0.0x10^3/uL (0.0-0.2) Sodium Level 138mmol/L (136-145) 138mmol/L (136-145) 140mmol/L (136-145) Potassium Level 3.8mmol/L (3.5-5.1) 3.8mmol/L (3.5-5.1) 4.1mmol/L (3.5-5.1) Chloride Level 103mmol/L (98-107) 102mmol/L (98-107) 106mmol/L (98-107) Carbon Dioxide Level 27mmol/L (21-32) 25mmol/L (21-32) 28mmol/L (21-32) Anion Gap 8 (6-14) 11 (6-14) 6 (6-14) Blood Urea Nitrogen 20mg/dL (7-20) 19mg/dL (7-20) 18mg/dL (7-20) Creatinine 1.3mg/dL (0.6-1.0) 1.3mg/dL (0.6-1.0) 1.4mg/dL (0.6-1.0) Estimated GFR (Cockcroft-Gault) 40.0 40.0 36.8 Glucose Level 157mg/dL (70-99) 122mg/dL (70-99) 121mg/dL (70-99) Calcium Level 8.9mg/dL (8.5-10.1) 8.8mg/dL (8.5-10.1) 8.1mg/dL (8.5-10.1) Laboratory Tests Test 01/25/17 05:10 White Blood Count 6.2x10^3/uL (4.0-11.0) Red Blood Count 3.41x10^6/uL (3.50-5.40) Hemoglobin 10.5g/dL (12.0-15.5) Hematocrit 30.4% (36.0-47.0) Mean Corpuscular Volume 89fL (79-100) Mean Corpuscular Hemoglobin 31pg (25-35) Mean Corpuscular Hemoglobin Concent 35g/dL (31-37) Red Cell Distribution Width 14.6% (11.5-14.5) Platelet Count 169x10^3/uL (140-400) Neutrophils (%) (Auto) 43% (31-73) Lymphocytes (%) (Auto) 39% (24-48) Monocytes (%) (Auto) 12% (0-9) Eosinophils (%) (Auto) 5% (0-3) Basophils (%) (Auto) 1% (0-3) Neutrophils # (Auto) 2.7x10^3uL (1.8-7.7) Lymphocytes # (Auto) 2.4x10^3/uL (1.0-4.8) Monocytes # (Auto) 0.8x10^3/uL (0.0-1.1) Eosinophils # (Auto) 0.3x10^3/uL (0.0-0.7) Basophils # (Auto) 0.0x10^3/uL (0.0-0.2) Sodium Level 140mmol/L (136-145) Potassium Level 4.1mmol/L (3.5-5.1) Chloride Level 106mmol/L (98-107) Carbon Dioxide Level 28mmol/L (21-32) Anion Gap 6 (6-14) Blood Urea Nitrogen 18mg/dL (7-20) Creatinine 1.4mg/dL (0.6-1.0) Estimated GFR (Cockcroft-Gault) 36.8 Glucose Level 121mg/dL (70-99) Calcium Level 8.1mg/dL (8.5-10.1) Medications Current Medications Acetaminophen/ Hydrocodone Bitart (Lortab 5/325) 1 tab 1X ONCE PO Last administered on 01/23/17 11:30; Start 01/23/17 at 11:30; Stop 01/23/17 at 11:31 ; Status DC Ondansetron HCl (Zofran Odt) 4 mg 1X ONCE PO Last administered on 01/23/17 11 :30; Start 01/23/17 at 11:30; Stop 01/23/17 at 11:31; Status DC Acetaminophen/ Hydrocodone Bitart (Lortab 5/325) 1 tab PRN 1X PRN PO pain Last administered on 01/24/17 00:13; Start 01/23/17 at 15:30; Stop 01/24/17 at 12:51 ; Status DC Acetaminophen (Tylenol) 325 mg PRN Q6HRS PRN PO MILD PAIN / TEMP; Start at 16:45 Acetaminophen/ Hydrocodone Bitart (Lortab 5/325) 1 tab PRN Q6HRS PRN PO MODERATE PAIN Last administered on 01/25/17 10:48; Start 01/23/17 at 16:45 Hydralazine HCl (Apresoline) 10 mg PRN Q4HRS PRN IVP ELEVATED BP, SEE COMMENTS ; Start 01/23/17 at 16:45 Ondansetron HCl (Zofran) 4 mg PRN Q8HRS PRN IV NAUSEA/VOMITING; Start 01/23/17 at 16:45 Albuterol Sulfate (Ventolin Neb Soln) 2.5 mg PRN Q4HRS PRN NEB SHORTNESS OF BREATH; Start 01/23/17 at 16:45 Enoxaparin Sodium (Lovenox 40mg Syringe) 40 mg Q24H SQ Last administered on 18:30; Start 01/23/17 at 18:00 Acetaminophen/ Hydrocodone Bitart (Lortab 7.5/325) 1 tab PRN Q4HRS PRN PO SEVERE PAIN Last administered on 01/23/17 18:20; Start 01/23/17 at 17:30 Ondansetron HCl (Zofran Odt) 4 mg PRN Q6HRS PRN PO NAUSEA/VOMITING Last administered on 01/25/17 11:41; Start 01/23/17 at 17:30 Aspirin (Ecotrin) 325 mg DAILY PO ; Start 01/25/17 at 09:00; Stop 02/22/17 at 08 :59 Alprazolam (Xanax) 0.25 mg PRN BID PRN PO ANXIETY / AGITATION; Start 01/24/17 at 16:00 Amlodipine Besylate (Norvasc) 5 mg DAILY08 PO Last administered on 01/25/17 08 :38; Start 01/24/17 at 16:00 Fluoxetine HCl (Prozac) 20 mg DAILY PO Last administered on 01/25/17 08:38; Start 01/24/17 at 16:00 Acetaminophen/ Hydrocodone Bitart (Lortab 5/325) 1 tab PRN Q6HRS PRN PO PAIN; Start 01/24/17 at 16:00; Stop 01/25/17 at 13:59; Status DC Metoprolol Succinate (Toprol Xl) 50 mg DAILY08 PO Last administered on 08:38; Start 01/24/17 at 16:00 Atorvastatin Calcium (Lipitor) 80 mg QHS PO Last administered on 01/24/17 20: 54; Start 01/24/17 at 21:00 Pioglitazone HCl (Actos) 30 mg DAILY PO Last administered on 01/25/17 08:37; Start 01/24/17 at 16:00 Active Scripts Active [place] 5-325 Tablet (Acetaminophen/Hydrocodone Bitart) 1 Each Tablet 1 Each PO PRN Q6HRS PRN as needed for pain Reported Alprazolam 0.25 Mg Tablet 0.25 Amlodipine Besylate 5 Mg Tablet 5 Pioglitazone Hcl 30 Mg Tablet 30 Mg PO DAILY Metoprolol Succinate 50 Mg Tab.er.24h 50 Mg PO Fluoxetine Hcl 20 Mg Capsule 1 Cap PO DAILY Atorvastatin Calcium 80 Mg Tablet 1 Tab PO DAILY Vitals/I & O Vital Sign - Last 24 Hours 4/29/17 4/29/17 4/29/17 4/30/17 19:50 20:00 23:28 07:00 Temp 99.9 97.9 97.9 99.9 97.9 97.9 Pulse 70 69 74 Resp 18 18 16 B/P 108/51 131/45 125/53 Pulse Ox 92 92 91 O2 Delivery Room Air Room Air Room Air Room Air 01/25/17 01/25/17 01/25/17 01/25/17 08:38 08:38 10:48 10:58 Temp 98.1 98.1 Pulse 74 74 63 Resp 20 B/P 125/53 125/53 102/40 Pulse Ox 91 92 O2 Delivery Room Air Room Air 01/25/17 01/25/17 11:48 15:13 Temp 97.9 97.9 Pulse 63 Resp 16 B/P 119/41 Pulse Ox 92 92 O2 Delivery Room Air Room Air Intake and Output 01/24/17 01/24/17 01/25/17 15:00 23:00 07:00 Intake Total 500 ml Balance 500 ml CRISTINA PARADA III DO Jan 25, 2017 16:41
[2017-01-25] MEDS: HYDROcodone/APAP 7.5/325MG 1 TAB TABLET PO PRN ×2 (17:02→22:54)
[2017-01-25] MEDS: ENOXAPARIN 40 MG/0.4 ML SYRINGE. SQ SCH (17:03)
[2017-01-25 19:00] VITALS: BP 110/53
[2017-01-25] MEDS: ATORVASTATIN CALCIUM 40 MG TABLET. PO SCH (21:00)
--- NOTE | 2017-01-25 21:27 | CONS ---
DATE OF CONSULTATION: REFERRING PROVIDER: Dayami. CONSULTING PROVIDER: Tj Hannon MD REASON FOR CONSULTATION: Right tibial plateau fracture. CHIEF COMPLAINT: Right knee pain. HISTORY OF PRESENT ILLNESS: The patient is a very pleasant 76-year-old female who was tending guinea fowl when she lost her footing climbing over fence and suffered right tibial plateau fracture that was discovered after she presented to our Emergency Department. Radiographs and CT had been performed. She has been in the knee immobilizer and feels that this is helpful. Her knee does hurt. The pain does radiate down the leg. It is worse with any type of movement. No prior history of knee complaints. Her pain is not progressing. ALLERGIES: None. MEDICATIONS: Were reviewed. Please see MRAD. PAST MEDICAL HISTORY: Hypertension, hyperlipidemia and diabetes. PAST SURGICAL HISTORY: . SOCIAL HISTORY: Lives with her who has recovered from knee replacement, surgery, no alcohol or tobacco. FAMILY HISTORY: Unknown. REVIEW OF SYSTEMS: Twelve point review of systems negative except as per HPI. PHYSICAL EXAMINATION: GENERAL: The patient is alert and oriented, no acute distress. Mood and affect are appropriate. She is examined sitting in her hospital chair. HEENT: Head normocephalic, atraumatic. Extraocular muscles are intact. CARDIOVASCULAR: Regular rate and rhythm. No edema in her lower extremities. Dorsalis pedis 2+ and symmetric. LUNGS: Respirations are unlabored with symmetric chest rise. ABDOMEN: Soft, nondistended. EXTREMITIES: Examination of bilateral lower extremities reveals EHL and FHL 5/5. All compartments are soft. She does have tenderness to palpation around her right knee. She does have a large effusion present. No gross deformity. Normal sensation throughout bilateral lower extremities. No tenderness at her hip. No pain with passive range of motion in her right lower extremity. IMAGING: X-rays are reviewed. These were interpreted by myself. Knee reports were also reviewed. Femur x-ray, tib-fib x-rays, pelvis x-ray, knee x-ray, ankle x-ray and lower extremity CT were interpreted by myself. She has a non-displaced lateral tibial plateau fracture and good overall alignment. IMPRESSION: Closed right tibial plateau fracture. PLAN: I did discuss non-operative management and answered her questions. We will get a hinged knee brace once Wardrobe Consultant is able to come by. I would recommend hinged knee brace locked in extension for a couple of weeks followed by range of motion. She should follow up with myself in 2-3 weeks in clinic for repeat radiographs. TJ HANNON MD DR: GENEVIEVE/leti JOB#: [id number] / [id number] PAULINO
[2017-01-25 23:00] VITALS: BP 139/68
[2017-01-26] MEDS: HYDROcodone/APAP 7.5/325MG 1 TAB TABLET PO PRN ×2 (04:57→12:04)
[2017-01-26 05:10] LABS: BASO % 0 % (0-3); EOS % 6 % (0-3); HEMATOCRIT 32.7 % (36.0-47.0); HEMOGLOBIN 10.8 g/dL (12.0-15.5); LYMPH # 2.2 x10^3/uL (1.0-4.8); LYMPH % 40 % (24-48); MEAN CORPUSCULAR HEMOGLOBIN 30 pg (25-35); MEAN CORPUSCULAR HGB CONC 33 g/dL (31-37); MEAN CORPUSCULAR VOLUME 92 fL (79-100); MONO % 11 % (0-9); NEUT % 42 % (31-73); PLATELET COUNT 174 x10^3/uL (140-400); RED BLOOD COUNT 3.56 x10^6/uL (3.50-5.40); RED CELL DISTRIBUTION WIDTH 14.6 % (11.5-14.5); WHITE BLOOD COUNT 5.5 x10^3/uL (4.0-11.0)
[2017-01-26 05:48] LABS: CALCIUM 8.3 mg/dL (8.5-10.1); CREATININE 1.3 mg/dL (0.6-1.0); POTASSIUM 4.4 mmol/L (3.5-5.1)
[2017-01-26 07:10] VITALS: BP 105/48
[2017-01-26] MEDS: amLODIPine BESYLATE 5 MG TABLET PO SCH (08:00)
[2017-01-26] MEDS: METOPROLOL SUCC 24HR ER 50 MG TAB.ER.24H. PO SCH (08:00)
[2017-01-26] MEDS: PIOGLITAZONE 15 MG TABLET. PO SCH (08:42)
[2017-01-26] MEDS: ASPIRIN ENTERIC COATED 325 MG TABLET.DR. PO SCH (08:44)
[2017-01-26] MEDS: FLUoxetine HCL 20 MG CAPSULE PO SCH (08:44)
[2017-01-26 10:51] VITALS: BP 121/52
[2017-01-26] MEDS: ONDANSETRON ODT 4 MG TAB.RAPDIS. PO PRN (12:04)
--- NOTE | 2017-01-26 13:26 | PDOC3 ---
Discharge Summary [facility] Date of Admission: Jan 23, 2017 Discharge Date: January 26, 2017 Admitting Diagnosis Right leg tibia fx wo sx -DM -angina -hypertension -hyperlipidemia -COPD -kidney cancer -left nephrectomy -depression -anxiety -smoking - section Problems: Final Diagnosis CONSULTS dr. Aguero Brief Hospital Course Ms. Foster is a 76 old F, comes post fall, right leg pain was found tibial fx , no sx required as per dr. Aguero. dc home, pt refused HH. dc with knee brace for 2 weeks. DC TIME 35min General: Alert, Cooperative, No acute distress Heart: Regular rate, Normal S1, Normal S2 Lungs: Clear, Other (negative chest retractions and/or other accessory muscle use. ) Abdomen: Normal bowel sounds, Soft, No tenderness, Other Extremities: No clubbing, No cyanosis, No edema, Other (knee brace to the RLE; LEs neurovacularly intact bilaterally. Distal pulses 2/4 bilaterally. ) Skin: No rashes, No breakdown Problems: Disposition home CONDITION AT DISCHARGE: Improved Diet regular Scheduled Atorvastatin Calcium (Atorvastatin Calcium) 1 TAB PO DAILY (Reported) Fluoxetine Hcl (Fluoxetine Hcl) 1 CAP PO DAILY (Reported) Pioglitazone Hcl (Pioglitazone Hcl) 30 MG PO DAILY (Reported) Scheduled PRN Hydrocodone/Apap 5-325 ([place] 5-325 Tablet) 1 EACH PO PRN Q6HRS PRN PRN PAIN Miscellaneous Medications Alprazolam (Alprazolam) 0.25 (Reported) Amlodipine Besylate (Amlodipine Besylate) 5 (Reported) Metoprolol Succinate (Metoprolol Succinate) 50 MG PO (Reported) Discontinued Medications Amlodipine Besylate (Amlodipine Besylate) 1 TAB PO DAILY (Reported) Follow Up ortho in 2 weeks BRAYAN CABRERA MD January 26, 2017 13:26
[2017-01-26 14:45] VITALS: BP 129/57
== END 2017-01-26 17:30 | disposition home or self-care (01) | DRG 544 ==
LOC: ER 10:06 → 4 NORTH 15:18
PROVIDERS: ADMIT Internal Medicine; ATTEND Internal Medicine
DX: M84.461A Pathological fracture, right tibia, initial encounter for fracture (principal); I10 Essential (primary) hypertension; W01.0XXA Fall on same level from slipping, tripping and stumbling without subsequent striking against object, initial encounter; E11.9 Type 2 diabetes mellitus without complications; J44.9 Chronic obstructive pulmonary disease, unspecified; E78.5 Hyperlipidemia, unspecified; F32.9 Major depressive disorder, single episode, unspecified; I20.9 Angina pectoris, unspecified; E78.00 Pure hypercholesterolemia, unspecified; F41.9 Anxiety disorder, unspecified; F17.200 Nicotine dependence, unspecified, uncomplicated; Y93.89 Activity, other specified; Y92.89 Other specified places as the place of occurrence of the external cause; Y99.8 Other external cause status; Z90.5 Acquired absence of kidney; Z85.528 Personal history of other malignant neoplasm of kidney; Z72.0 Tobacco use
CPT/HCPCS: 29505; 36415; 72170; 73552; 73564; 73590; 73610; 73700; 80048; 85027; 93005; 94250; J1650; J2405; Q0162; 97116; 97535; 99285-25

== ENCOUNTER 2021-09-06 11:05 | Inpatient (IN) | payer MEDICARE, OTHER ==
[~2021-09-06] VITALS: Ht 154.9 cm; Wt 71.6 kg
[~2021-09-06 11:05] MED LIST changes: +ALPR0.254; +AMLO-186; -AMLO2.5T PO; +AMLO2.5T5 PO; +FLUO20CA22 PO; -FLUO20CA8 PO; +HYDR-3164 PO; -METO50TA10 PO; +METO50TA29 PO; -PIOG30TA3 PO; +PIOG30TA62 PO
[2021-09-06] MEDS ORDERED: IV RINGERS,LACTATED 1000ML 1,000 ML IV SCH (11:30)
[2021-09-06] MEDS ORDERED: ASPIRIN CHEWABLE 81 MG TABLET. PO ONE (11:30)
[2021-09-06] MEDS ORDERED: ONDANSETRON PF 4 MG/2 ML VIAL. IVP ONE (11:30)
--- NOTE | 2021-09-06 11:47 | PHYS DOC ---
Past Medical History Past Medical History: High Cholesterol, Hypertension Additional Past Medical Histor: KIDNEY CA (CAREN SOTO) Past Surgical History: , Other Additional Past Surgical Histo: L KIDNEY REMOVED,CARDIAC ABLATION (CAREN SOTO) Smoking Status: Former Smoker Alcohol Use: None Drug Use: None (CAREN SOTO) General Adult EDM: Chief Complaint: CHEST PAIN HPI: HPI: Patient is a 81 year old female with history of diabetes, hypertension, hyperlipidemia, A. fib with ablation who presents with central chest pain that began approximately 1 hour prior to arrival. Patient states that she woke up with the pain and it has been waxing and waning in nature since onset. She denies any radiation. Patient reports associated diaphoresis, nausea, but has not vomited at this point. She reports she has had some reflux symptoms the past few weeks, but this does not feel similar. She has not had similar pain in the past. (CAREN SOTO) Review of Systems: Review of Systems: Constitutional: Denies fever or chills. Eyes: Denies change in visual acuity. HENT: Denies nasal congestion or sore throat. Respiratory: Denies cough or shortness of breath. Cardiovascular: See HPI GI: See HPI : Denies dysuria or hematuria. Musculoskeletal: Denies back pain or joint pain. Integument: See HPI Neurologic: Denies headache, focal weakness or sensory changes. Endocrine: Denies polyuria or polydipsia. (CAREN SOTO) Heart Score: C/O Chest Pain: Yes HEART Score for Chest Pain: HEART Score for Chest Pain Response (Comments) Value History Moderately Suspicious 1 ECG Normal 0 Age > 65 2 Risk Factors >3 Risk Factors or Hx CAD 2 Troponin < Normal Limit 0 Total 5 Risk Factors: Risk Factors: DM, HTN, HLD, obesity Risk Scores: Score 0 - 3: 2.5% MACE over next 6 weeks - Discharge Home Score 4 - 6: 20.3% MACE over next 6 weeks - Admit for Clinical Observation Score 7 - 10: 72.7% MACE over next 6 weeks - Early Invasive Strategies (CAREN SOTO) Current Medications: Current Medications Medications (Trade) Dose Ordered Sig/Kerrie Start Time Stop Time Status Last Admin Dose Admin Aspirin (Aspirin Chewable) 324 mg 1X ONCE 09/06/21 11:30 09/06/21 11:31 DC Nitroglycerin (Nitrostat) 0.4 mg PRN Q5MIN PRN 09/06/21 11:30 Ondansetron HCl (Zofran) 4 mg PRN Q4HRS ONCE 09/06/21 11:30 09/06/21 11:31 DC Ringer's Solution 1,000 ml @ 1,000 mls/hr Q1H 09/06/21 11:30 09/06/21 12:29 (CAREN SOTO) Allergies: Allergies: Allergies Coded Allergies Type Severity Reaction Last Updated Verified No Known Drug Allergies 02/10/19 No (CAREN SOTO) Physical Exam: PE: Constitutional: Well developed, well nourished, patient appears uncomfortable in exam bed and is retching. HENT: Normocephalic, atraumatic, bilateral external ears normal, oropharynx moist, no oral exudates, external nose without obvious deformity or discharge. Eyes: PERRLA, EOMI, conjunctiva normal, no discharge. Neck: Normal range of motion, no tenderness, supple, no stridor, no JVD. Cardiovascular: Heart rate regular rhythm, no obvious murmur. Lungs & Thorax: Bilateral breath sounds clear to auscultation [] Abdomen: Bowel sounds normal, soft, no tenderness, no masses, no pulsatile masses. [] Skin: Patient is slightly diaphoretic. Skin otherwise warm, no erythema, no rash. Back: No step-offs, no tenderness, no CVA tenderness. Extremities: No tenderness, no cyanosis, no clubbing, ROM intact, no edema. Neurologic: Alert and oriented x4, no focal deficits noted. (CAREN SOTO) Current Patient Data: Labs: Laboratory Tests Test 09/06/21 11:55 White Blood Count 10.0 x10^3/uL (4.0-11.0) Red Blood Count 4.73 x10^6/uL (3.50-5.40) Hemoglobin 13.3 g/dL (12.0-15.5) Hematocrit 39.4 % (36.0-47.0) Mean Corpuscular Volume 83 fL (79-100) Mean Corpuscular Hemoglobin 28 pg (25-35) Mean Corpuscular Hemoglobin Concent 34 g/dL (31-37) Red Cell Distribution Width 14.4 % (11.5-14.5) Platelet Count 271 x10^3/uL (140-400) Neutrophils (%) (Auto) 70 % (31-73) Lymphocytes (%) (Auto) 20 % (24-48) Monocytes (%) (Auto) 7 % (0-9) Eosinophils (%) (Auto) 3 % (0-3) Basophils (%) (Auto) 1 % (0-3) Neutrophils # (Auto) 7.0 x10^3/uL (1.8-7.7) Lymphocytes # (Auto) 2.0 x10^3/uL (1.0-4.8) Monocytes # (Auto) 0.7 x10^3/uL (0.0-1.1) Eosinophils # (Auto) 0.3 x10^3/uL (0.0-0.7) Basophils # (Auto) 0.1 x10^3/uL (0.0-0.2) Prothrombin Time 18.9 SEC (11.7-14.0) Prothromb Time International Ratio 1.6 (0.8-1.1) Activated Partial Thromboplast Time 36 SEC (24-38) Sodium Level 139 mmol/L (136-145) Potassium Level 3.9 mmol/L (3.5-5.1) Chloride Level 103 mmol/L (98-107) Carbon Dioxide Level 25 mmol/L (21-32) Anion Gap 11 (6-14) Blood Urea Nitrogen 18 mg/dL (7-20) Creatinine 1.2 mg/dL (0.6-1.0) Estimated GFR (Cockcroft-Gault) 43.3 BUN/Creatinine Ratio 15 (6-20) Glucose Level 158 mg/dL (70-99) Calcium Level 8.4 mg/dL (8.5-10.1) Magnesium Level 2.0 mg/dL (1.8-2.4) Total Bilirubin 0.5 mg/dL (0.2-1.0) Aspartate Amino Transf (AST/SGOT) 21 U/L (15-37) Alanine Aminotransferase (ALT/SGPT) 27 U/L (14-59) Alkaline Phosphatase 146 U/L (46-116) Troponin I High Sensitivity 10 ng/L (4-50) PK-Wjr-M-Type Natriuretic Peptide 226 pg/mL (0-449) Total Protein 6.8 g/dL (6.4-8.2) Albumin 3.2 g/dL (3.4-5.0) Albumin/Globulin Ratio 0.9 (1.0-1.7) Lipase 190 U/L (73-393) Vital Signs: Vital Signs Date Time Temp Pulse Resp B/P (MAP) Pulse Ox O2 Delivery O2 Flow Rate FiO2 09/06/21 13:53 75 175/77 09/06/21 11:10 98.1 82 20 179/84 (115) 99 Room Air 98.1 (CAREN SOTO) EKG: EKG: EKG Interpreted by Dr. Cody at 1117: Regular rate and rhythm 83 bpm with no ectopic beats. QT 368 ms/QTc 433 ms. No STEMI. (CAREN SOTO) Radiology/Procedures: Radiology/Procedures: PROCEDURE: PORTABLE CHEST 1V EXAM: XR CHEST 1V 09/06/2021 11:27 AM CLINICAL INDICATION: Chest pain COMPARISON: None available TECHNIQUE: AP view of the chest FINDINGS: The heart and mediastinum are normal. Lungs are well-expanded and clear. No consolidation, pleural effusion, or pneumothorax. Pulmonary vascularity is normal. Mild acromioclavicular degenerative joint disease bilaterally. IMPRESSION: No acute cardiopulmonary abnormality. Electronically signed by: Lizbeth Sidhu MD (09/06/2021 12:07 PM) [id number] (CAREN SOTO) Course & Med Decision Making: Course & Med Decision Making Pertinent Labs and Imaging studies reviewed. (See chart for details) Patient history and presentation combined with risk factors concerning for cardiac etiology of chest pain. Work-up will include serial troponins, multiple EKGs, BNP, coags, chemistries, chest x-ray. Patient will be admitted to hospitalist service for observation and telemetry. EKG and troponin results reassuring, lab work is largely unremarkable. Patient will be admitted to hospitalist service for chest pain with telemetry monitoring. (CAREN SOTO) Course & Med Decision Making I was the Attending physician on the above date of service of this patient. This patient was evaluated, examined, treated, and dispositioned from the emergency department by the mid-level practitioner. I reviewed the chart and agreed to need for hospitalization Electronically signed, Vince Cody DO (VINCE CODY DO) Chirag Disclaimer: Chirag Disclaimer: This electronic medical record was generated, in whole or in part, using a voice recognition dictation system. (CAREN SOTO) Departure Departure Impression: Primary Impression: Chest pain of uncertain etiology Additional Impressions: Diabetes mellitus Qualified Codes: E11.9 - Type 2 diabetes mellitus without complications Hypertension Qualified Codes: I10 - Essential (primary) hypertension Hyperlipemia Qualified Codes: E78.5 - Hyperlipidemia, unspecified Nausea S/P ablation of atrial fibrillation Disposition: ADMITTED INPATIENT Admitting Physician: GRIFFIN Marte) (CAREN SOTO) Condition: GUARDED Referrals: JONATHON SYKES MD (PCP) CAREN SOTO Sep 06, 2021 11:47 VINCE CODY DO Sep 10, 2021 07:10
--- NOTE | 2021-09-06 12:10 | RAD ---
EXAM: XR CHEST 1V 09/06/2021 11:27 AM CLINICAL INDICATION: Chest pain COMPARISON: None available TECHNIQUE: AP view of the chest FINDINGS: The heart and mediastinum are normal. Lungs are well-expanded and clear. No consolidatio n, pleural effusion, or pneumothorax. Pulmonary vascularity is normal. Mild acromioclavicular degene rative joint disease bilaterally. IMPRESSION: No acute cardiopulmonary abnormality. Electronically signed by: Lizbeth Sidhu MD (09/06/2021 12:07 PM) [id number]
[2021-09-06 12:15] LABS: BASO # 0.1 x10^3/uL (0.0-0.2); BASO % 1 % (0-3); EOS # 0.3 x10^3/uL (0.0-0.7); EOS % 3 % (0-3); HEMATOCRIT 39.4 % (36.0-47.0); HEMOGLOBIN 13.3 g/dL (12.0-15.5); LYMPH % 20 % (24-48); MEAN CORPUSCULAR HEMOGLOBIN 28 pg (25-35); MEAN CORPUSCULAR HGB CONC 34 g/dL (31-37); MEAN CORPUSCULAR VOLUME 83 fL (79-100); MONO # 0.7 x10^3/uL (0.0-1.1); MONO % 7 % (0-9); NEUT % 70 % (31-73); PLATELET COUNT 271 x10^3/uL (140-400); RED BLOOD COUNT 4.73 x10^6/uL (3.50-5.40); RED CELL DISTRIBUTION WIDTH 14.4 % (11.5-14.5)
[2021-09-06 12:27] LABS: PROTHROMBIN TIME PATIENT 18.9 SEC (11.7-14.0)
[2021-09-06 12:33] LABS: CALCIUM 8.4 mg/dL (8.5-10.1); CREATININE 1.2 mg/dL (0.6-1.0); GFR 43.3; POTASSIUM 3.9 mmol/L (3.5-5.1)
[2021-09-06 12:39] LABS: ALBUMIN 3.2 g/dL (3.4-5.0); ALBUMIN/GLOBULIN RATIO 0.9 (1.0-1.7); TOTAL BILIRUBIN 0.5 mg/dL (0.2-1.0); TOTAL PROTEIN 6.8 g/dL (6.4-8.2)
[2021-09-06] MEDS: NITROGLYCERIN SUBLINGUAL 0.4 MG BOTTLE OF 25. SL PRN ×2 (13:53→15:29)
[2021-09-06 14:23] LABS: BILIRUBIN,URINE NEGATIVE (NEG); CLARITY,URINE CLEAR; COLOR,URINE YELLOW; NITRITE,URINE POSITIVE (NEG); PH,URINE 7.5 (<5.0-8.0); PROTEIN,URINE NEGATIVE (NEG-TRACE); UROBILINOGEN,URINE 0.2 mg/dL (0.2 mg/dL)
[2021-09-06 14:35] LABS: BACTERIA,URINE MANY /HPF (0-FEW); RBC,URINE 0 /HPF (0-2)
[2021-09-06 15:00] VITALS: BP 148/67
--- NOTE | 2021-09-06 15:15 | NUR ---
Pt to room from ED. Assisted to bed and placed on monitor. Pt c/o CP. Nitro given SL. EKG done. Dr. Stock notified. Orders received. Pt states pain was quickly relieved with nitro.
[2021-09-06] MEDS ORDERED: MORPHINE SULFATE 2 MG/ML INJ. IVP PRN (15:30)
--- NOTE | 2021-09-06 15:32 | EKG ---
[address] [place] [address] Test Date: 2021-09-06 Test Time: 15:25:50 Pat Name: DAYANA CRY Department: Room: Gender: F Attending Pathologist: GUILLERMO : 1940 Requested By: CAREN SOTO Order Number: [id number] Reading MD: Measurements Intervals [place] Rate: 72 P: 69 MI: 144 QRS: 26 QRSD: 80 T: 31 QT: 394 QTc: 433 Interpretive Statements SINUS RHYTHM LOW LIMB LEAD VOLTAGE NO SPECIFIC ECG ABNORMALITIES RI6.02 Compared to ECG 01/23/2017 11:00:13 No significant changes
[2021-09-06] MEDS ORDERED: RIVA2.5T PO (15:44)
[2021-09-06] MEDS ORDERED: INSU100I13 SQ (16:15)
[2021-09-06] MEDS ORDERED: ISOS30TA68 PO (16:16)
[2021-09-06] MEDS ORDERED: cefTRIAXone IV Push 1 GM VIAL. IVP SCH (17:00)
--- NOTE | 2021-09-06 17:04 | HP ---
DATE OF SERVICE: 09/06/2021 ADMIT DATE: 09/06/2021 CHIEF COMPLAINT: Chest pain. HISTORY OF PRESENT ILLNESS: The patient is a pleasant elderly female who presented to the ER with chest pain. She has some subtle EKG changes. Her troponin is normal at 10. Her BNP level is normal at 226, but her symptoms seem to be suggestive of possible angina. I discussed the case with the ER physician. We are going to admit the patient and consult Cardiology. PAST MEDICAL HISTORY: Diabetes, hypertension, hyperlipidemia, cardiac ablation to treat her AFib, chronic anticoagulation, left nephrectomy, previous tobacco abuse, kidney cancer, . ALLERGIES: None. FAMILY HISTORY: Coronary artery disease. SOCIAL HISTORY: She quit smoking. No drink or drugs. She is retired. MEDICATIONS: Reviewed, please refer to the MRAD. REVIEW OF SYSTEMS: GENERAL: No history of weight change, weakness or fevers. SKIN: No bruising, hair changes or rashes. EYES: No blurred, double or loss of vision. NOSE AND THROAT: No history of nosebleeds, hoarseness or sore throat. HEART: She complains of chest pain. LUNGS: Denies cough, hemoptysis, wheezing or shortness of breath. GASTROINTESTINAL: Denies changes in appetite, nausea, vomiting, diarrhea or constipation. GENITOURINARY: No history of frequency, urgency, hesitancy or nocturia. NEUROLOGIC: Denies history of numbness, tingling, tremor or weakness. PSYCHIATRIC: No history of panic, anxiety or depression. ENDOCRINE: No history of heat or cold intolerance, polyuria or polydipsia. EXTREMITIES: Denies muscle weakness, joint pain, pain on walking or stiffness. PHYSICAL EXAMINATION: VITALS: Within normal limits and are stable. GENERAL: No apparent distress. Alert and oriented. HEENT: Normal cephalic atraumatic, external auditory canals are patent. Eyes: Extraocular muscles are intact, pupils are equally round and reactive to light and accommodation. MUSCULOSKELETAL: Well developed, well nourished, good range of motion. ENDOCRINE: No thyromegaly was palpated. LYMPHATICS: No cervical chain or axillary nodes were noted. HEMATOPOIETIC: No bruising. NECK: Supple, no JVD, no thyromegaly was noted. LUNGS: Clear to auscultation in all lung [place] without rhonchi or wheezing. HEART: RRR, S1, S2 present. Peripheral pulses intact, no obvious murmurs were noted. ABDOMEN: Soft, nontender. Positive bowel sounds, no organomegaly, normal bowel sounds. EXTREMITIES: Without any cyanosis, clubbing, or edema. Pedal pulses intact, Homans sign is negative. NEUROLOGIC: Normal speech, normal tone. A and O x 3, moves all extremities, no obvious focal deficits. PSYCHIATRIC: Normal affect, normal mood. Stable. SKIN: No ulcerations or rashes, good skin turgor, no jaundice. VASCULAR: Good capillary refill, neurovascular bundle appears to be intact. . LABORATORY DATA: Electrolytes are normal other than a creatinine of 1.2, glucose is 158. Alkaline phosphatase slightly high at 146. Calcium slightly low at 8.4. Urinalysis, small amount of leukocyte esterase, 11-20 white cells. INR is 1.6. Chest x-ray, no acute process. ASSESSMENT AND PLAN: Chest pain with incidental finding of urinary tract infection. The patient has been admitted. We will continue cardiac monitoring. Serial enzymes. Serial EKGs. Consult Cardiology. Home meds. Deep venous thrombosis prophylaxis. Full code. I spoke with the pharmacy regarding her meds. We will start IV Rocephin. PT, OT. BASSEM/LEONCIO DR: BASSEM/leti TID: [id number]
[2021-09-06 19:10] VITALS: BP 138/65
[2021-09-06 23:05] VITALS: BP 132/63
[2021-09-07 03:50] VITALS: BP 149/66
--- NOTE | 2021-09-07 04:39 | EKG ---
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
[2021-09-07 05:18] LABS: CHOLESTEROL/HDL RATIO 4.6
[2021-09-07 07:55] VITALS: BP 133/60
[2021-09-07 11:36] VITALS: BP 171/105
[2021-09-07] MEDS ORDERED: DEXTROSE 50% 25 GM / 50ML DISP.SYRIN. IV PRN (12:30)
--- NOTE | 2021-09-07 15:27 | DS ---
DATE OF DISCHARGE: 09/07/2021 ADMITTING DIAGNOSES: Chest pain, urinary tract infection. DISCHARGE DIAGNOSES: Resolving chest pain, suspect musculoskeletal pain, diabetes, hypertension, hyperlipidemia, cardiac ablation, history of atrial fibrillation, chronic anticoagulation, left nephrectomy, previous tobacco abuse, kidney cancer, , resolving urinary tract infection. CONSULTS: Cardiology. PROCEDURES: None. HOSPITAL COURSE: The patient is a pleasant elderly female who presented with some chest pain. We admitted her and did serial enzymes, serial EKGs. She did have a bump in her troponin up to a max of 42. Today, I saw and examined her. She is doing well and wants to go home. If okay with Cardiology, we plan to discharge. DISPOSITION: Home. ACTIVITY: As tolerated. DIET: Low sodium. DISCHARGE MEDICATIONS: Please see the MRAD. Atorvastatin 80 a day, Prozac 20 a day, insulin 10 units of Lantus at bedtime, Imdur 30 a day and Xarelto 15 daily, bdrf-the-asgtgam Prilosec to help with GERD and Augmentin 875 p.o. b.i.d. for 5 days. TOTAL TIME: [address]: Dotty TID: [id number]
[2021-09-07 15:31] VITALS: BP 182/83
--- NOTE | 2021-09-07 15:36 | PDOC2 ---
CONSULT Date of Consult Date of Consult DATE: 09/07/21 TIME: 15:36 Reason for Consult Reason for Consult: CP Referring Physician Referring Physician: Dr. Stock Identification/Chief Complaint Chief Complaint CP Source Source: Chart review, Patient History of Present Illness Reason for Visit: 81 y/o female with h/o atrial fibrillation s/p ablation presented with retrosternal chest pain that she described as pressure like sensation 8/10 severity not related to exertion or food intake. She as haseline dyspnea on exertion and denied any recent worsening. She also denied any orthopnea/PND, palpitations or syncope. Upon my exam she was CP free and wanted to go home. Past Medical History Cardiovascular: HTN, Hyperlipidemia Endocrine: Diabetes Past Surgical History Past Surgical History: Family History Family History: No Significant Social History ALCOHOL: none Drugs: None Lives: with Family Current Problem List Problem List Problems Medical Problems: (1) Chest pain of uncertain etiology Status: Acute (2) Diabetes mellitus Status: Acute (3) Hyperlipemia Status: Acute (4) Hypertension Status: Acute Current Medications Current Medications Current Medications Aspirin (Aspirin Chewable) 324 mg 1X ONCE PO Last administered on 09/06/21at 11:57; Start 09/06/21 at 11:30; Stop 09/06/21 at 11:31; Status DC Ringer's Solution 1,000 ml @ 1,000 mls/hr Q1H IV Last administered on 09/06/21at 11:52; Start 09/06/21 at 11:30; Stop 09/06/21 at 12:29; Status DC Nitroglycerin (Nitrostat) 0.4 mg PRN Q5MIN PRN SL CHEST PAIN Last administered on 09/06/21at 15:29; Start 09/06/21 at 11:30 Ondansetron HCl (Zofran) 4 mg PRN Q4HRS ONCE IVP Last administered on 09/06/21at 11:53; Start 09/06/21 at 11:30; Stop 09/06/21 at 11:31; Status DC Morphine Sulfate (Morphine Sulfate) 2 mg PRN Q2HR PRN IVP MODERATE TO SEVERE PAIN; Start 09/06/21 at 15:30 Ceftriaxone Sodium (Rocephin) 1 gm Q24H IVP Last administered on 09/06/21at 16:50; Start 09/06/21 at 17:00 Insulin Human Lispro (HumaLOG) 0-5 UNITS TIDWMEALS SQ Last administered on 09/07/21at 12:33; Start 09/07/21 at 17:00 Dextrose (Dextrose 50%-Water Syringe) 12.5 gm PRN Q15MIN PRN IV SEE COMMENTS; Start 09/07/21 at 12:30 Active Scripts Active Reported Isosorbide Mononitrate Er (Isosorbide Mononitrate) 30 Mg Tab.er.24h 1 Tab PO DAILY Lantus Solostar (Insulin Glargine,Hum.rec.anlog) 100 Unit/1 Ml Insuln.pen 10 Unit SQ QHS Xarelto (Rivaroxaban) 2.5 Mg Tablet 15 Mg PO DAILY Fluoxetine Hcl 20 Mg Capsule 1 Cap PO DAILY Atorvastatin Calcium 80 Mg Tablet 1 Tab PO DAILY Allergies Allergies: Coded Allergies: No Known Drug Allergies (Unverified , 02/10/19) ROS PSYCHOLOGICAL ROS: No: Hallucinations Eyes: No Loss of vision HEENT: No: Epistaxis Respiratory: YES: Shortness of breath Cardiovascular: yes Chest Pain Genitourinary: No Hematuria Neurological: No Seizures Skin: No Rash Physical Exam General: Alert, No acute distress HEENT: Atraumatic Heart: Regular rate Abdomen: Soft Extremities: No edema Psych/Mental Status: Mood NL Vitals VITALS Vital Signs Date Time Temp Pulse Resp B/P (MAP) Pulse Ox O2 Delivery O2 Flow Rate FiO2 09/07/21 15:31 98.0 72 18 182/83 (116) 98 Room Air 98.0 Labs Labs Laboratory Tests Test 09/06/21 11:55 09/06/21 13:57 09/06/21 15:55 09/06/21 16:19 White Blood Count 10.0 x10^3/uL (4.0-11.0) Red Blood Count 4.73 x10^6/uL (3.50-5.40) Hemoglobin 13.3 g/dL (12.0-15.5) Hematocrit 39.4 % (36.0-47.0) Mean Corpuscular Volume 83 fL (79-100) Mean Corpuscular Hemoglobin 28 pg (25-35) Mean Corpuscular Hemoglobin Concent 34 g/dL (31-37) Red Cell Distribution Width 14.4 % (11.5-14.5) Platelet Count 271 x10^3/uL (140-400) Neutrophils (%) (Auto) 70 % (31-73) Lymphocytes (%) (Auto) 20 % (24-48) Monocytes (%) (Auto) 7 % (0-9) Eosinophils (%) (Auto) 3 % (0-3) Basophils (%) (Auto) 1 % (0-3) Neutrophils # (Auto) 7.0 x10^3/uL (1.8-7.7) Lymphocytes # (Auto) 2.0 x10^3/uL (1.0-4.8) Monocytes # (Auto) 0.7 x10^3/uL (0.0-1.1) Eosinophils # (Auto) 0.3 x10^3/uL (0.0-0.7) Basophils # (Auto) 0.1 x10^3/uL (0.0-0.2) Prothrombin Time 18.9 SEC (11.7-14.0) Prothromb Time International Ratio 1.6 (0.8-1.1) Activated Partial Thromboplast Time 36 SEC (24-38) Sodium Level 139 mmol/L (136-145) Potassium Level 3.9 mmol/L (3.5-5.1) Chloride Level 103 mmol/L (98-107) Carbon Dioxide Level 25 mmol/L (21-32) Anion Gap 11 (6-14) Blood Urea Nitrogen 18 mg/dL (7-20) Creatinine 1.2 mg/dL (0.6-1.0) Estimated GFR (Cockcroft-Gault) 43.3 BUN/Creatinine Ratio 15 (6-20) Glucose Level 158 mg/dL (70-99) Calcium Level 8.4 mg/dL (8.5-10.1) Magnesium Level 2.0 mg/dL (1.8-2.4) Total Bilirubin 0.5 mg/dL (0.2-1.0) Aspartate Amino Transf (AST/SGOT) 21 U/L (15-37) Alanine Aminotransferase (ALT/SGPT) 27 U/L (14-59) Alkaline Phosphatase 146 U/L (46-116) Troponin I High Sensitivity 10 ng/L (4-50) 42 ng/L (4-50) [id number]-[id number]-Y-Type Natriuretic Peptide 226 pg/mL (0-449) Total Protein 6.8 g/dL (6.4-8.2) Albumin 3.2 g/dL (3.4-5.0) Albumin/Globulin Ratio 0.9 (1.0-1.7) Lipase 190 U/L (73-393) Urine Collection Type Unknown Urine Color Yellow Urine Clarity Clear Urine pH 7.5 (<5.0-8.0) Urine Specific [place] 1.010 (1.000-1.030) Urine Protein Negative mg/dL (NEG-TRACE) Urine Glucose (UA) Negative mg/dL (NEG) Urine Ketones (Stick) Negative mg/dL (NEG) Urine Blood Negative (NEG) Urine Nitrite Positive (NEG) Urine Bilirubin Negative (NEG) Urine Urobilinogen Dipstick 0.2 mg/dL (0.2 mg/dL) Urine Leukocyte Esterase Small (NEG) Urine RBC 0 /HPF (0-2) Urine WBC 11-20 /HPF (0-4) Urine Bacteria Many /HPF (0-FEW) Thyroid Stimulating Hormone (TSH) 1.844 uIU/mL (0.358-3.74) Glucose (Fingerstick) 110 mg/dL (70-99) Test 09/06/21 20:28 09/06/21 23:25 09/07/21 04:00 09/07/21 08:19 Glucose (Fingerstick) 167 mg/dL (70-99) 196 mg/dL (70-99) Troponin I High Sensitivity 29 ng/L (4-50) Triglycerides Level 126 mg/dL (0-150) Cholesterol Level 153 mg/dL (0-200) LDL Cholesterol, Calculated 95 mg/dL (0-100) VLDL Cholesterol, Calculated 25 mg/dL (0-40) Non-HDL Cholesterol Calculated 120 mg/dL (0-129) HDL Cholesterol 33 mg/dL (40-60) Cholesterol/HDL Ratio 4.6 Test 09/07/21 11:41 09/07/21 15:22 Glucose (Fingerstick) 162 mg/dL (70-99) 166 mg/dL (70-99) Laboratory Tests Test 09/06/21 15:55 09/06/21 16:19 09/06/21 20:28 09/06/21 23:25 Troponin I High Sensitivity 42 ng/L (4-50) 29 ng/L (4-50) Thyroid Stimulating Hormone (TSH) 1.844 uIU/mL (0.358-3.74) Glucose (Fingerstick) 110 mg/dL (70-99) 167 mg/dL (70-99) Test 09/07/21 04:00 09/07/21 08:19 09/07/21 11:41 09/07/21 15:22 Triglycerides Level 126 mg/dL (0-150) Cholesterol Level 153 mg/dL (0-200) LDL Cholesterol, Calculated 95 mg/dL (0-100) VLDL Cholesterol, Calculated 25 mg/dL (0-40) Non-HDL Cholesterol Calculated 120 mg/dL (0-129) HDL Cholesterol 33 mg/dL (40-60) Cholesterol/HDL Ratio 4.6 Glucose (Fingerstick) 196 mg/dL (70-99) 162 mg/dL (70-99) 166 mg/dL (70-99) Assessment/Plan Assessment/Plan 1. Chest pain with mixed features. ND ruled out. Plan echo and MPI as outpatient 2. PAF s/p ablation, presently SR. Continue xarelto for stroke prophylaxis 3. HTN: controlled 4. HLP: statins 5. DM2: per IM Thank you for your consultation ETHEL CABALLERO MD Sep 07, 2021 15:36
--- NOTE | 2021-09-07 15:44 | NUR ---
Pt discharged. Discharge instructions given to pt. Taken to private vehicle per w/c with .
[2021-09-07] MEDS ORDERED: INSULIN LISPRO 300 UNITS/3 ML VIAL. SQ SCH (17:00)
== END 2021-09-07 15:00 | disposition home or self-care (01) | DRG 313 ==
LOC: ER 11:05 → 6 SOUTH 13:25
PROVIDERS: ADMIT Internal Medicine; ATTEND Internal Medicine
DX: R07.89 Other chest pain (principal); N39.0 Urinary tract infection, site not specified; E11.9 Type 2 diabetes mellitus without complications; E78.00 Pure hypercholesterolemia, unspecified; E78.5 Hyperlipidemia, unspecified; I10 Essential (primary) hypertension; Z79.01 Long term (current) use of anticoagulants; Z82.49 Family history of ischemic heart disease and other diseases of the circulatory system; Z85.528 Personal history of other malignant neoplasm of kidney; Z87.891 Personal history of nicotine dependence; Z90.5 Acquired absence of kidney; I48.0 Paroxysmal atrial fibrillation; K21.9 Gastro-esophageal reflux disease without esophagitis
CPT/HCPCS: 36415; 71045; 80053; 80061; 81001; 82962; 83690; 83735; 83880; 84443; 84484; 85025; 85610; 85730; 87077; 87086; 87186; 93005; 96361; 96374; J0696; J1815; J2405; J7120; 99285-25; G0378